=== PATIENT | male | born 1950 | race Caucasian/White ===

== ENCOUNTER → 2018-05-28 08:42 | Outpatient (CLI) | payer MEDICARE, BC, SELFPAY ==
[2018-05-28 10:23] LABS: Alanine Aminotransferase 36 IU/L (21-72); Albumin 4.5 g/dL (3.5-5.0); Alkaline Phosphatase 57 U/L (38-126); Aspartate Aminotransferase 24 IU/L (17-59); Bilirubin Total 1.2 mg/dL (0.2-1.3); Blood Urea Nitrogen 20 mg/dL (9-20); Calcium 9.6 mg/dL (8.4-10.2); Carbon Dioxide 29 mmol/L (22-32); Chloride 103 mmol/L (98-107); Cholesterol 133 mg/dL (140-199); Estimated Glomerular Filt Rate > 60.0 mL/min (>60); Globulin 2.3 g/dL (1.7-4.1); Glucose 122 mg/dL (80-110); HDL Cholesterol 66 mg/dL (40-60); HEMOLYSIS < 15 (0-50); LDL Cholesterol Calculated 52 mg/dL (<100); Sodium 139 mmol/L (137-145); Total Protein 6.8 g/dL (6.3-8.2); Triglycerides 73 mg/dL (35-150)
[2018-05-28 10:57] LABS: Hemoglobin A1C% w Est Avg Glu 5.9 % (4.0-6.0)
== END ==
PROVIDERS: Visit Provider Obstetrics & Gynecology Obstetrics
DX: E11.8 Type 2 diabetes mellitus with unspecified complications (principal); E78.5 Hyperlipidemia, unspecified
CPT/HCPCS: 36415; 80053; 80061; 83036

== ENCOUNTER → 2018-08-07 08:29 | Outpatient (CLI) | payer MEDICARE, BC, SELFPAY ==
[2018-08-07 09:48] LABS: Hemoglobin A1C% w Est Avg Glu 6.3 % (4.0-6.0)
[2018-08-07 09:57] LABS: Alanine Aminotransferase 27 IU/L (21-72); Albumin 4.5 g/dL (3.5-5.0); Albumin Globulin Ratio 1.9 (1.0-2.8); Alkaline Phosphatase 68 U/L (38-126); Aspartate Aminotransferase 22 IU/L (17-59); Bilirubin Total 0.9 mg/dL (0.2-1.3); Blood Urea Nitrogen 21 mg/dL (9-20); Calcium 9.6 mg/dL (8.4-10.2); Carbon Dioxide 28 mmol/L (22-32); Chloride 102 mmol/L (98-107); Cholesterol 152 mg/dL (140-199); Estimated Glomerular Filt Rate > 60.0 mL/min (>60); Globulin 2.4 g/dL (1.7-4.1); Glucose 130 mg/dL (80-110); HDL Cholesterol 62 mg/dL (40-60); HEMOLYSIS < 15 (0-50); LDL Cholesterol Calculated 67 mg/dL (<100); Potassium 4.4 mmol/L (3.4-5.1); Sodium 140 mmol/L (137-145); Total Protein 6.9 g/dL (6.3-8.2); Triglycerides 116 mg/dL (35-150)
== END ==
PROVIDERS: PCP Obstetrics & Gynecology Obstetrics; Visit Provider Obstetrics & Gynecology Obstetrics
DX: E11.8 Type 2 diabetes mellitus with unspecified complications (principal)
CPT/HCPCS: 36415; 80053; 80061; 83036

== ENCOUNTER → 2018-10-21 07:05 | Outpatient (CLI) | payer MEDICARE, BC, SELFPAY ==
[2018-10-21 08:37] LABS: Alanine Aminotransferase 28 IU/L (21-72); Albumin 4.3 g/dL (3.5-5.0); Alkaline Phosphatase 61 U/L (38-126); Aspartate Aminotransferase 20 IU/L (17-59); BUN Creatinine Ratio 37.1 (6-22); Bilirubin Total 0.8 mg/dL (0.2-1.3); Blood Urea Nitrogen 26 mg/dL (9-20); Calcium 9.8 mg/dL (8.4-10.2); Carbon Dioxide 29 mmol/L (22-32); Chloride 105 mmol/L (98-107); Cholesterol 159 mg/dL (140-199); Estimated Glomerular Filt Rate > 60.0 mL/min (>60); Globulin 2.2 g/dL (1.7-4.1); Glucose 133 mg/dL (80-110); HDL Cholesterol 72 mg/dL (40-60); HEMOLYSIS < 15 (0-50); LDL Cholesterol Calculated 63 mg/dL (<100); Potassium 4.7 mmol/L (3.4-5.1); Sodium 143 mmol/L (137-145); Total Protein 6.5 g/dL (6.3-8.2); Triglycerides 120 mg/dL (35-150)
== END ==
PROVIDERS: PCP Obstetrics & Gynecology Obstetrics; Visit Provider Obstetrics & Gynecology Obstetrics
DX: E78.5 Hyperlipidemia, unspecified (principal); E11.8 Type 2 diabetes mellitus with unspecified complications
CPT/HCPCS: 36415; 80053; 80061; 83036

== ENCOUNTER → 2019-02-09 07:25 | Outpatient (CLI) | payer MEDICARE, BC, SELFPAY ==
[2019-02-09 08:35] LABS: Alanine Aminotransferase 30 IU/L (21-72); Albumin 4.3 g/dL (3.5-5.0); Albumin Globulin Ratio 1.7 (1.0-2.8); Alkaline Phosphatase 65 U/L (38-126); Aspartate Aminotransferase 24 IU/L (17-59); Blood Urea Nitrogen 21 mg/dL (9-20); Calcium 9.5 mg/dL (8.4-10.2); Carbon Dioxide 30 mmol/L (22-32); Chloride 103 mmol/L (98-107); Cholesterol 143 mg/dL (140-199); Estimated Glomerular Filt Rate > 60.0 mL/min (>60); Globulin 2.5 g/dL (1.7-4.1); Glucose 133 mg/dL (80-110); HDL Cholesterol 70 mg/dL (40-60); HEMOLYSIS < 15 (0-50); LDL Cholesterol Calculated 47 mg/dL (<100); Potassium 3.9 mmol/L (3.4-5.1); Sodium 138 mmol/L (137-145); Total Protein 6.8 g/dL (6.3-8.2); Triglycerides 132 mg/dL (35-150)
[2019-02-10 15:34] LABS: Hemoglobin A1C% w Est Avg Glu 6.1 % (4.0-6.0)
== END ==
PROVIDERS: PCP Obstetrics & Gynecology Obstetrics; Visit Provider Obstetrics & Gynecology Obstetrics
DX: E11.9 Type 2 diabetes mellitus without complications (principal); E78.5 Hyperlipidemia, unspecified
CPT/HCPCS: 36415; 80053; 80061; 83036

== ENCOUNTER → 2019-05-13 08:06 | Outpatient (CLI) | payer MEDICARE, BC, SELFPAY ==
[2019-05-13 10:05] LABS: Hemoglobin A1C% w Est Avg Glu 6.4 % (4.0-6.0)
[2019-05-13 10:22] LABS: Alanine Aminotransferase 25 IU/L (<50); Albumin 4.1 g/dL (3.5-5.0); Albumin Globulin Ratio 1.8 (1.0-2.8); Alkaline Phosphatase 60 U/L (38-126); Aspartate Aminotransferase 22 IU/L (17-59); Bilirubin Total 0.7 mg/dL (0.2-1.3); Blood Urea Nitrogen 20 mg/dL (9-20); Calcium 10.1 mg/dL (8.4-10.2); Carbon Dioxide 29 mmol/L (22-32); Chloride 103 mmol/L (98-107); Cholesterol 150 mg/dL (140-199); Estimated Glomerular Filt Rate > 60.0 mL/min (>60); Globulin 2.3 g/dL (1.7-4.1); Glucose 131 mg/dL (80-110); HDL Cholesterol 71 mg/dL (40-60); HEMOLYSIS < 15 (0-50); LDL Cholesterol Calculated 53 mg/dL (<100); Potassium 4.4 mmol/L (3.4-5.1); Sodium 139 mmol/L (137-145); Total Protein 6.4 g/dL (6.3-8.2); Triglycerides 130 mg/dL (35-150)
== END ==
PROVIDERS: PCP Obstetrics & Gynecology Obstetrics; Visit Provider Obstetrics & Gynecology Obstetrics
DX: E11.9 Type 2 diabetes mellitus without complications (principal); E78.5 Hyperlipidemia, unspecified
CPT/HCPCS: 36415; 80053; 80061; 83036

== ENCOUNTER → 2019-06-18 10:54 | Outpatient (CLI) | payer MEDICARE, BC, SELFPAY ==
[2019-06-18 11:33] LABS: Influenza A - CEPHEID Flu A NEGATIVE (NEGATIVE); Influenza B - CEPHEID Flu B NEGATIVE (NEGATIVE)
== END ==
PROVIDERS: PCP Obstetrics & Gynecology Obstetrics; Visit Provider Physician Assistant
DX: R50.9 Fever, unspecified (principal)
CPT/HCPCS: 87502

== ENCOUNTER 2019-06-25 10:16 | Emergency (ER) | payer MEDICARE, BC, SELFPAY ==
[2019-06-25 10:20] VITALS: BP 137/80; PULSE 78; RESP 18; TEMP 37.2; O2SAT 98
--- NOTE | 2019-06-25 10:34 | DI.RAD.S_ITS ---
PROCEDURE: XR CHEST 2V INDICATIONS: copd/cough x 9 days w/ fever TECHNIQUE: 2 views of the chest were acquired. COMPARISON: [facility], , CHEST 2 VIEW, 01/30/2017, 12:26. FINDINGS: Surgical changes and devices: None. Lungs and pleura: There are linear opacities redemonstrated in the left base likely representing atelectasis or scarring. No definite acute consolidation. No pleural effusions or pneumothorax. Mediastinum: Mediastinal contours are normal. Heart size is normal. Bones and chest wall: No suspicious bony abnormalities. Soft tissues appear unremarkable. IMPRESSION: 1. No definite consolidation to suggest pneumonia. 2. Probable atelectasis or scarring in the left base. Dictated by: Salvador Burton M.D. on 06/25/2019 at 9:50 Approved by: Salvador Burton M.D. on 06/25/2019 at 9:52
--- NOTE | 2019-06-25 10:44 | ED_ITS ---
HPI - Fever General Chief Complaint: Fever Stated Complaint: fever Time Seen by Provider: 06/25/19 10:18 Source: patient and family Mode of arrival: Ambulatory Limitations: no limitations History of Present Illness HPI Narrative: 68-year-old male former smoker with history of COPD presents with a chief complaint of ongoing nasal congestion, fever as high as 102 and cough productive of yellowish sputum for upwards of 9 days. He was seen and evaluated at the walk-in clinic on and diagnosed with presumptive pneumonia and put on doxycycline of which he has taken 4 doses. He still continues to feel ?lousy?. He denies any chest pain or significant shortness of breath. He denies any recent travel. He states that a deep breath seems to exacerbate his cough MD complaint: fever Onset (ago): day(s) Temperature Source: oral Associated symptoms: chills, myalgias, headache, rhinorrhea and nasal congestion Relieving factors: nothing Exacerbating factors: nothing Treatments prior to arrival fever: antibiotics Related Data Home Medications Medication Instructions Recorded Confirmed budesonide 2 ml INHALATION BID 06/25/19 06/25/19 doxycycline hyclate 100 mg PO BID 06/25/19 06/25/19 finasteride 5 mg PO DAILY 06/25/19 06/25/19 hydrocodone-acetaminophen 1 tab PO QID PRN 06/25/19 06/25/19 Allergies Allergy/AdvReac Type Severity Reaction Status Date / Time rivaroxaban [From XARELTO] Allergy Severe THOUGHT HE Verified 06/18/19 10:32 WAS HAVING A HEART ATTACK Review of Systems Constitutional Constitutional: Reports chills, Denies fatigue, Reports fever(s), Denies frequent falls, Denies lethargy and Denies weakness Eyes Eyes: Denies change in vision, Denies eye discharge, Denies irritation and Denies loss of vision ENT Ears, Nose, Mouth, and Throat: Denies change in voice, Denies dizziness, Reports nasal congestion, Denies neck pain, Denies sore throat and Denies throat swelling Cardiovascular Cardiovascular: Denies chest pain, Denies irregular heart rhythm, Denies lightheadedness, Denies palpitations, Denies dyspnea, Denies dyspnea on exertion and Denies orthopnea Respiratory Respiratory: Reports cough, Reports excessive phlegm production, Denies dyspnea, Denies dyspnea on exertion and Denies wheezing Gastrointestinal Gastrointestinal: Denies abdominal pain, Denies change in bowel habits, Denies diarrhea, Denies nausea and Denies vomiting Genitourinary Genitourinary: Denies hematuria, Denies flank pain, Denies urinary incontinence and Denies urinary urgency Musculoskeletal Musculoskeletal: Denies back pain, Denies muscle weakness, Denies neck pain, Denies numbness and Denies tingling Integumentary/Breasts Skin/Breast: Denies pruritus, Denies erythema, Denies rash and Denies wounds Neurologic Neurologic: Denies behavioral changes, Denies confusion, Denies dizziness, Denies frequent falls, Denies loss of vision, Denies numbness, Denies tingling and Denies weakness Psychiatric Psychiatric: Denies anxiety, Denies behavioral changes, Denies confusion, Denies depression, Denies homicidal ideation and Denies suicidal ideation Endocrine Endocrine: Denies fatigue, Denies flushing and Denies palpitations Hematologic/Lymphatic Hematologic/Lymphatic: Denies easy bruising Allergic/Immunologic Allergic/Immunologic: Denies urticaria, Denies throat swelling and Denies wheezing Patient History Medical History Viral syndrome (Acute) Social History Smoking Status: Never smoker Smoking Status: Never smoker alcohol intake frequency: 0-2 drinks per day Substance Use Type: does not use Exam Narrative Exam Narrative: GENERAL: [68] year old patient appears stated age. Well- nourished, well-developed patient, in mild distress. HEAD: Atraumatic. Normocephalic. EYES: Pupils equal round and reactive. Extraocular motions intact. No scleral icterus. No injection or drainage. ENT: Nose without bleeding, purulent drainage. Throat without erythema, tonsillar hypertrophy or exudate. Airway patent. NECK: Trachea midline. Non tender CARDIOVASCULAR: Regular rate and rhythm without murmurs, gallops, or rubs. RESPIRATORY: Decreased breath sounds bilaterally with prolonged expiratory phase and some suggestion of bronchospastic cough GASTROINTESTINAL: Abdomen soft, non-tender, nondistended. EXTREMITIES: No edema or joint tenderness. BACK: Nontender without deformity or crepitance. No flank tenderness. NEURO: AOx3. SKIN: No rash or erythema of visible areas Initial Vital Signs Initial Vital Signs: Vital Signs Temperature 98.9 F 06/25/19 10:20 Pulse Rate 78 06/25/19 10:20 Respiratory Rate 18 06/25/19 10:20 Blood Pressure 137/80 06/25/19 10:20 Pulse Oximetry 98 06/25/19 10:20 Course Orders Ordered: ED Orders 06/25/19 10:30 Complete Blood Count AUTO DIFF Stat Comprehensive Metabolic Panel Stat Lactate (Lactic Acid) Stat Lipase Stat Partial Thromboplastin Time Stat Procalcitonin Stat Prothrombin Time INR Stat 06/25/19 10:34 Chest [XR chest 2V] Stat EKG-12 Lead Stat 06/25/19 10:55 Blood Culture Stat 06/25/19 11:00 Influenza A & B (PCR) Stat Respiratory Panel (Film Array) Stat Discontinued Medications Albuterol/Ipratropium (Duoneb) 3 ml INH NOW ONE Stop: 06/25/19 11:17 Last Admin: 06/25/19 11:48 Dose: 3 ml Documented by: RENNY Sodium Chloride (Normal Saline 0.9%) 1,000 mls @ 1,000 mls/hr IV BOLUS ONE Stop: 06/25/19 11:32 Last Infusion: 06/25/19 11:58 Dose: 0 mls/hr Documented by: Admin: 06/25/19 10:55 Dose: 1,000 mls/hr Documented by: CHRISTINA Ketorolac Tromethamine (Toradol) 15 mg IV NOW ONE Stop: 06/25/19 10:44 Last Admin: 06/25/19 10:57 Dose: 15 mg Documented by: CHRISTINA Ondansetron HCl (Zofran) 4 mg IV NOW ONE Stop: 06/25/19 10:34 Last Admin: 06/25/19 10:57 Dose: 4 mg Documented by: CHRISTINA Vital Signs Vital signs: Vital Signs - 8 hr 06/25/19 11:07 06/25/19 11:47 06/25/19 11:49 Pulse Rate 75 74 73 Respiratory Rate 14 15 16 Blood Pressure [Left Arm] 123/73 121/71 Pulse Oximetry 97 96 97 06/25/19 13:00 Pulse Rate 68 Respiratory Rate 16 Blood Pressure [Left Arm] 107/66 Pulse Oximetry 93 MDM - Fever Lab Data Result diagrams: 06/25/19 10:30 06/25/19 10:30 Labs: Lab Results 06/25/19 06/25/19 06/25/19 Range/Units 10:30 10:30 10:30 WBC 4.8 (4.5-11.0) X10^3/uL RBC 4.22 L (4.5-5.9) X10^6/uL Hgb 13.8 (13.5-17.5) g/dL Hct 39.3 L (41-53) % MCV 93.1 (80-100) fL MCH 32.7 (26-34) PG MCHC 35.1 (30-36) % RDW 12.6 (11.6-14.8) % Plt Count 204 (150-400) X10^3/uL Neut % (Auto) 73.1 (50-75) % Lymph % (Auto) 19.1 L (25-40) % Forest % (Auto) 7.4 (3-14) % Eos % (Auto) 0.1 L (2-4) % Baso % (Auto) 0.3 (0-2) % Neut # (Auto) 3500 (5366-0007) /uL Lymph # (Auto) 900 L (5202-6050) /uL Forest # (Auto) 400 (0-900) /uL Eos # (Auto) 0 (0-450) /uL Baso # (Auto) 0 (0-100) /uL PT 12.1 (10.1-12.7) SECONDS INR 1.0 (0.9-1.3) APTT 27 (26.4-36.2) SECONDS Sodium (137-145) mmol/L Potassium (3.4-5.1) mmol/L Chloride (98-107) mmol/L Carbon Dioxide (22-32) mmol/L BUN (9-20) mg/dL Creatinine (0.66-1.25) mg/dL Estimated GFR (>60) mL/min BUN/Creatinine Ratio (6-22) Glucose (80-110) mg/dL Lactate (0.7-2.1) mmol/L Calcium (8.4-10.2) mg/dL Total Bilirubin (0.2-1.3) mg/dL AST (17-59) IU/L ALT (<50) IU/L Alkaline Phosphatase (38-126) U/L Total Protein (6.3-8.2) g/dL Albumin (3.5-5.0) g/dL Globulin (1.7-4.1) g/dL Albumin/Globulin Ratio (1.0-2.8) Lipase (23-300) U/L Procalcitonin < 0.05 (<0.5) ng/mL Chlamy pneumoniae PCR (Not Detect) Adenovirus (PCR) (Not Detect) B.parapertussis DNA PCR (Not Detect) Coronavirus OC43 (PCR) (Not Detect) Coronavirus HKU1 (PCR) (Not Detect) Coronavirus 229E (PCR) (Not Detect) Coronavirus NL63 (PCR) (Not Detect) Human Metapneumovir PCR (Not Detect) Influenza A (RT-PCR) (NEGATIVE) Influenza Type A (PCR) (Not Detect) Influenza B (RT-PCR) (NEGATIVE) Influenza Type B (PCR) (Not Detect) M. pneumoniae (PCR) (Not Detect) Parainfluenza 1 (PCR) (Not Detect) Parainfluenza 2 (PCR) (Not Detect) Parainfluenza 3 (PCR) (Not Detect) Parainfluenza 4 (PCR) (Not Detect) RSV (PCR) (Not Detect) Entero/Rhino (PCR) (Not Detect) 06/25/19 06/25/19 06/25/19 Range/Units 10:30 10:30 11:00 WBC (4.5-11.0) X10^3/uL RBC (4.5-5.9) X10^6/uL Hgb (13.5-17.5) g/dL Hct (41-53) % MCV (80-100) fL MCH (26-34) PG MCHC (30-36) % RDW (11.6-14.8) % Plt Count (150-400) X10^3/uL Neut % (Auto) (50-75) % Lymph % (Auto) (25-40) % Forest % (Auto) (3-14) % Eos % (Auto) (2-4) % Baso % (Auto) (0-2) % Neut # (Auto) (3845-6293) /uL Lymph # (Auto) (1045-7842) /uL Forest # (Auto) (0-900) /uL Eos # (Auto) (0-450) /uL Baso # (Auto) (0-100) /uL PT (10.1-12.7) SECONDS INR (0.9-1.3) APTT (26.4-36.2) SECONDS Sodium 136 L (137-145) mmol/L Potassium 3.7 (3.4-5.1) mmol/L Chloride 100 (98-107) mmol/L Carbon Dioxide 24 (22-32) mmol/L BUN 17 (9-20) mg/dL Creatinine 0.70 (0.66-1.25) mg/dL Estimated GFR > 60.0 (>60) mL/min BUN/Creatinine Ratio 24.3 H (6-22) Glucose 249 H (80-110) mg/dL Lactate 1.9 (0.7-2.1) mmol/L Calcium 8.8 (8.4-10.2) mg/dL Total Bilirubin 0.5 (0.2-1.3) mg/dL AST 30 (17-59) IU/L ALT 30 (<50) IU/L Alkaline Phosphatase 69 (38-126) U/L Total Protein 6.7 (6.3-8.2) g/dL Albumin 4.2 (3.5-5.0) g/dL Globulin 2.5 (1.7-4.1) g/dL Albumin/Globulin Ratio 1.7 (1.0-2.8) Lipase 111 (23-300) U/L Procalcitonin (<0.5) ng/mL Chlamy pneumoniae PCR (Not Detect) Adenovirus (PCR) (Not Detect) B.parapertussis DNA PCR (Not Detect) Coronavirus OC43 (PCR) (Not Detect) Coronavirus HKU1 (PCR) (Not Detect) Coronavirus 229E (PCR) (Not Detect) Coronavirus NL63 (PCR) (Not Detect) Human Metapneumovir PCR (Not Detect) Influenza A (RT-PCR) Flu a negative (NEGATIVE) Influenza Type A (PCR) (Not Detect) Influenza B (RT-PCR) Flu b negative (NEGATIVE) Influenza Type B (PCR) (Not Detect) M. pneumoniae (PCR) (Not Detect) Parainfluenza 1 (PCR) (Not Detect) Parainfluenza 2 (PCR) (Not Detect) Parainfluenza 3 (PCR) (Not Detect) Parainfluenza 4 (PCR) (Not Detect) RSV (PCR) (Not Detect) Entero/Rhino (PCR) (Not Detect) 06/25/19 Range/Units 11:00 WBC (4.5-11.0) X10^3/uL RBC (4.5-5.9) X10^6/uL Hgb (13.5-17.5) g/dL Hct (41-53) % MCV (80-100) fL MCH (26-34) PG MCHC (30-36) % RDW (11.6-14.8) % Plt Count (150-400) X10^3/uL Neut % (Auto) (50-75) % Lymph % (Auto) (25-40) % Forest % (Auto) (3-14) % Eos % (Auto) (2-4) % Baso % (Auto) (0-2) % Neut # (Auto) (7903-4068) /uL Lymph # (Auto) (8491-6206) /uL Forest # (Auto) (0-900) /uL Eos # (Auto) (0-450) /uL Baso # (Auto) (0-100) /uL PT (10.1-12.7) SECONDS INR (0.9-1.3) APTT (26.4-36.2) SECONDS Sodium (137-145) mmol/L Potassium (3.4-5.1) mmol/L Chloride (98-107) mmol/L Carbon Dioxide (22-32) mmol/L BUN (9-20) mg/dL Creatinine (0.66-1.25) mg/dL Estimated GFR (>60) mL/min BUN/Creatinine Ratio (6-22) Glucose (80-110) mg/dL Lactate (0.7-2.1) mmol/L Calcium (8.4-10.2) mg/dL Total Bilirubin (0.2-1.3) mg/dL AST (17-59) IU/L ALT (<50) IU/L Alkaline Phosphatase (38-126) U/L Total Protein (6.3-8.2) g/dL Albumin (3.5-5.0) g/dL Globulin (1.7-4.1) g/dL Albumin/Globulin Ratio (1.0-2.8) Lipase (23-300) U/L Procalcitonin (<0.5) ng/mL Chlamy pneumoniae PCR Not detected (Not Detect) Adenovirus (PCR) Not detected (Not Detect) B.parapertussis DNA PCR Not detected (Not Detect) Coronavirus OC43 (PCR) Not detected (Not Detect) Coronavirus HKU1 (PCR) Not detected (Not Detect) Coronavirus 229E (PCR) Not detected (Not Detect) Coronavirus NL63 (PCR) Not detected (Not Detect) Human Metapneumovir PCR Not detected (Not Detect) Influenza A (RT-PCR) (NEGATIVE) Influenza Type A (PCR) Not detected (Not Detect) Influenza B (RT-PCR) (NEGATIVE) Influenza Type B (PCR) Not detected (Not Detect) M. pneumoniae (PCR) Not detected (Not Detect) Parainfluenza 1 (PCR) Not detected (Not Detect) Parainfluenza 2 (PCR) Not detected (Not Detect) Parainfluenza 3 (PCR) Not detected (Not Detect) Parainfluenza 4 (PCR) Not detected (Not Detect) RSV (PCR) Not detected (Not Detect) Entero/Rhino (PCR) Not detected (Not Detect) Urine Dip Bedside Urine Glucose Negative Bedside Urine Bilirubin - Negative Bedside Urine Ketone - Negative Urine Specific [place] 1.015 Bedside Urine Occult Blood - Negative Bedside Urine pH 5.5 Bedside Urine Protein +/- 15 Bedside Urine Urobilinogen - Negative Bedside Urine Nitrite - Negative Bedside Urine Leukocytes - Negative Esterase Discharge Plan Departure Patient Disposition: Home Clinical Impression: Atypical pneumonia Discharge Date/Time: 06/25/19 13:52 Instructions: DI for Atypical Pneumonia Activity Restrictions/Additional Instructions: *You have been diagnosed with [fever with productive cough likely due to an atypical pneumonia. I did discuss your case with the [facility] and you do not meet the criteria for evaluation of coronavirus] *What to do: *Take medications as directed *Follow up with your primary care provider in 2-3 days, call for an appointment. Let them know you were seen in the Emergency Department and that we ask that you be seen in follow up *Return to ER if you should have any new, worsening or concerning symptoms, such as [ ] Prescriptions: No Action doxycycline hyclate 100 mg capsule 100 mg PO BID RF: 0 hydrocodone-acetaminophen 5-325 mg tablet 1 tab PO QID PRN (Reason: Pain (Scale Score 7-10)) RF: 0 budesonide 0.5 mg/2 mL suspension for nebulization 2 ml inhalation BID RF: 0 finasteride 5 mg tablet 5 mg PO DAILY RF: 0 Referrals: Shreya Mejia MD [Primary Care Provider] -
[2019-06-25 10:45] LABS: Add Manual Diff / Slide Review NO; Basophils Absolute Auto 0 /uL (0-100); Basophils Percent Auto 0.3 % (0-2); Eosinophils Absolute Auto 0 /uL (0-450); Eosinophils Percent Auto 0.1 % (2-4); Hematocrit 39.3 % (41-53); Hemoglobin 13.8 g/dL (13.5-17.5); Lymphocytes Absolute Auto 900 /uL (1100-4500); Lymphocytes Percent Auto 19.1 % (25-40); Mean Corpuscular HGB Conc 35.1 % (30-36); Mean Corpuscular Hemoglobin 32.7 PG (26-34); Mean Corpuscular Volume 93.1 fL (80-100); Monocytes Absolute Auto 400 /uL (0-900); Monocytes Percent Auto 7.4 % (3-14); Neutrophils Absolute Auto 3500 /uL (1500-7000); Neutrophils Percent Auto 73.1 % (50-75); Platelet Count 204 X10^3/uL (150-400); Red Blood Cell Count 4.22 X10^6/uL (4.5-5.9); Red Cell Distribution Width 12.6 % (11.6-14.8); White Blood Cell Count 4.8 X10^3/uL (4.5-11.0)
[2019-06-25] MEDS: SODIUM CHLORIDE 0.9% 1,000 ML 1000 ML IV (10:55)
[2019-06-25] MEDS: KETOROLAC 60 MG/2 ML VIAL 15 MG IV (10:57)
[2019-06-25] MEDS: ONDANSETRON 4 MG/2 ML INJ IV (10:57)
[2019-06-25 11:07] VITALS: BP 123/73; PULSE 75; RESP 14; O2SAT 97
[2019-06-25 11:10] LABS: Prothrombin Time 12.1 SECONDS (10.1-12.7)
[2019-06-25 11:13] LABS: Lactate (Lactic Acid) 1.9 mmol/L (0.7-2.1); PTT Partial Thromboplastin Tim 27 SECONDS (26.4-36.2)
[2019-06-25 11:14] LABS: Alanine Aminotransferase 30 IU/L (<50); Albumin 4.2 g/dL (3.5-5.0); Albumin Globulin Ratio 1.7 (1.0-2.8); Alkaline Phosphatase 69 U/L (38-126); Aspartate Aminotransferase 30 IU/L (17-59); BUN Creatinine Ratio 24.3 (6-22); Bilirubin Total 0.5 mg/dL (0.2-1.3); Blood Urea Nitrogen 17 mg/dL (9-20); Calcium 8.8 mg/dL (8.4-10.2); Carbon Dioxide 24 mmol/L (22-32); Chloride 100 mmol/L (98-107); Estimated Glomerular Filt Rate > 60.0 mL/min (>60); Globulin 2.5 g/dL (1.7-4.1); Glucose 249 mg/dL (80-110); HEMOLYSIS < 15 (0-50); Lipase 111 U/L (23-300); Potassium 3.7 mmol/L (3.4-5.1); Sodium 136 mmol/L (137-145); Total Protein 6.7 g/dL (6.3-8.2)
[2019-06-25 11:47] VITALS: BP 121/71; PULSE 74; RESP 15; O2SAT 96
[2019-06-25] MEDS: ALBUTEROL/IPRATROPIUM 3 ML AMPUL INH (11:48)
[2019-06-25 11:49] VITALS: PULSE 73; RESP 16; O2SAT 97
[2019-06-25 12:03] LABS: Procalcitonin < 0.05 ng/mL (<0.5)
[2019-06-25 12:31] LABS: Influenza A - CEPHEID Flu A NEGATIVE (NEGATIVE); Influenza B - CEPHEID Flu B NEGATIVE (NEGATIVE)
[2019-06-25 13:00] VITALS: BP 107/66; PULSE 68; RESP 16; O2SAT 93
[2019-06-25 13:17] LABS: Adenovirus Not Detected (Not Detect); Bordetella pertussis Not Detected (Not Detect); Chlamydophila pneumoniae Not Detected (Not Detect); Coronavirus 229E Not Detected (Not Detect); Coronavirus HKU1 Not Detected (Not Detect); Coronavirus NL 63 Not Detected (Not Detect); Coronavirus OC43 Not Detected (Not Detect); Human Metapneumovirus Not Detected (Not Detect); Human Rhinovirus/Enterovirus Not Detected (Not Detect); Influenza A Not Detected (Not Detect); Influenza B Not Detected (Not Detect); Mycoplasma pneumoniae Not Detected (Not Detect); Parainfluenza Virus 1 Not Detected (Not Detect); Parainfluenza Virus 2 Not Detected (Not Detect); Parainfluenza Virus 3 Not Detected (Not Detect); Parainfluenza Virus 4 Not Detected (Not Detect); Respiratory Syncytial Virus Not Detected (Not Detect)
== END 2019-06-25 13:52 | disposition home or self-care (01) ==
PROVIDERS: Emergency Provider Emergency Medicine; PCP Obstetrics & Gynecology Obstetrics
DX: J18.9 Pneumonia, unspecified organism (principal); R50.9 Fever, unspecified
CPT/HCPCS: 36415; 71046; 80053; 81003; 83605; 83690; 84145; 85025; 85610; 85730; 87040; 87502; 87633; 93005; 94640; 96361; 96374; 96375; 99284; J1885; J2405

== ENCOUNTER → 2019-08-02 07:56 | Outpatient (CLI) | payer MEDICARE, BC, SELFPAY ==
[2019-08-02 09:42] LABS: Hemoglobin A1C% w Est Avg Glu 6.6 % (4.0-6.0)
[2019-08-02 09:48] LABS: Alanine Aminotransferase 26 IU/L (<50); Albumin 4.4 g/dL (3.5-5.0); Albumin Globulin Ratio 1.6 (1.0-2.8); Alkaline Phosphatase 59 U/L (38-126); Aspartate Aminotransferase 26 IU/L (17-59); BUN Creatinine Ratio 28.2 (6-22); Bilirubin Total 0.9 mg/dL (0.2-1.3); Blood Urea Nitrogen 20 mg/dL (9-20); Calcium 9.9 mg/dL (8.4-10.2); Carbon Dioxide 28 mmol/L (22-32); Chloride 103 mmol/L (98-107); Cholesterol 153 mg/dL (140-199); Estimated Glomerular Filt Rate > 60.0 mL/min (>60); Globulin 2.8 g/dL (1.7-4.1); Glucose 133 mg/dL (80-110); HDL Cholesterol 59 mg/dL (40-60); HEMOLYSIS < 15 (0-50); LDL Cholesterol Calculated 73 mg/dL (<100); Potassium 4.4 mmol/L (3.4-5.1); Sodium 139 mmol/L (137-145); Total Protein 7.2 g/dL (6.3-8.2); Triglycerides 104 mg/dL (35-150)
== END ==
PROVIDERS: PCP Obstetrics & Gynecology Obstetrics; Referring Provider Obstetrics & Gynecology Obstetrics; Visit Provider Obstetrics & Gynecology Obstetrics
DX: E11.9 Type 2 diabetes mellitus without complications (principal); E78.5 Hyperlipidemia, unspecified
CPT/HCPCS: 36415; 80053; 80061; 83036

== ENCOUNTER → 2019-11-07 07:01 | Outpatient (CLI) | payer MEDICARE, BC, SELFPAY ==
[2019-11-07 07:58] LABS: Alanine Aminotransferase 23 IU/L (<50); Albumin 4.4 g/dL (3.5-5.0); Albumin Globulin Ratio 2.1 (1.0-2.8); Alkaline Phosphatase 51 U/L (38-126); Aspartate Aminotransferase 23 IU/L (17-59); BUN Creatinine Ratio 35.1 (6-22); Bilirubin Total 0.7 mg/dL (0.2-1.3); Blood Urea Nitrogen 26 mg/dL (9-20); Calcium 10.3 mg/dL (8.4-10.2); Carbon Dioxide 29 mmol/L (22-32); Chloride 104 mmol/L (98-107); Cholesterol 149 mg/dL (140-199); Estimated Glomerular Filt Rate > 60.0 mL/min (>60); Globulin 2.1 g/dL (1.7-4.1); Glucose 118 mg/dL (80-110); HDL Cholesterol 75 mg/dL (40-60); HEMOLYSIS < 15 (0-50); LDL Cholesterol Calculated 55 mg/dL (<100); Potassium 4.6 mmol/L (3.4-5.1); Sodium 138 mmol/L (137-145); Total Protein 6.5 g/dL (6.3-8.2); Triglycerides 97 mg/dL (35-150)
[2019-11-07 08:01] LABS: Hemoglobin A1C% w Est Avg Glu 6.4 % (4.0-6.0)
== END ==
PROVIDERS: PCP Obstetrics & Gynecology Obstetrics; Referring Provider Obstetrics & Gynecology Obstetrics; Visit Provider Obstetrics & Gynecology Obstetrics
DX: E11.9 Type 2 diabetes mellitus without complications (principal); E78.5 Hyperlipidemia, unspecified
CPT/HCPCS: 36415; 80053; 80061; 83036

== ENCOUNTER → 2020-05-02 13:58 | Outpatient (CLI) | payer MEDICARE, BC, SELFPAY ==
[2020-05-02 14:55] LABS: COVID19 -Nasal RAPID Negative (Negative)
== END ==
PROVIDERS: PCP Obstetrics & Gynecology Obstetrics; Visit Provider Physician Assistant
DX: Z01.812 Encounter for preprocedural laboratory examination (principal); Z20.822 Contact with and (suspected) exposure to COVID-19
CPT/HCPCS: 87635; C9803

== ENCOUNTER → 2020-05-07 07:24 | Outpatient (CLI) | payer MEDICARE, BC, SELFPAY ==
[2020-05-07 08:17] LABS: Hemoglobin A1C% w Est Avg Glu 6.6 % (4.0-6.0)
[2020-05-07 08:41] LABS: Alanine Aminotransferase 29 IU/L (<50); Albumin 4.4 g/dL (3.5-5.0); Albumin Globulin Ratio 1.9 (1.0-2.8); Alkaline Phosphatase 66 U/L (38-126); Aspartate Aminotransferase 31 IU/L (17-59); BUN Creatinine Ratio 33.8 (6-22); Bilirubin Total 0.8 mg/dL (0.2-1.3); Blood Urea Nitrogen 24 mg/dL (9-20); Calcium 9.7 mg/dL (8.4-10.2); Carbon Dioxide 31 mmol/L (22-32); Chloride 105 mmol/L (98-107); Estimated Glomerular Filt Rate > 60.0 mL/min (>60); Globulin 2.3 g/dL (1.7-4.1); Glucose 140 mg/dL (80-110); HEMOLYSIS 17 (0-50); Potassium 4.3 mmol/L (3.4-5.1); Sodium 140 mmol/L (137-145); Total Protein 6.7 g/dL (6.3-8.2)
[2020-05-08 03:15] LABS: Cholesterol HDL Ratio 2.3 ratio (0.0-5.0); Cholesterol,Total 159 mg/dL (100-199); HDL Cholesterol 69 mg/dL (>39); LDL Cholesterol Cal 66 mg/dL (0-99); Triglycerides 138 mg/dL (0-149); VLDL Cholesterol Cal 24 mg/dL (5-40)
== END ==
PROVIDERS: PCP Obstetrics & Gynecology Obstetrics; Referring Provider Obstetrics & Gynecology Obstetrics; Visit Provider Obstetrics & Gynecology Obstetrics
DX: E11.9 Type 2 diabetes mellitus without complications (principal); E78.5 Hyperlipidemia, unspecified
CPT/HCPCS: 36415; 80053; 80061; 83036

== ENCOUNTER → 2020-05-22 10:02 | Outpatient (CLI) | payer MEDICARE, BC, SELFPAY ==
[2020-05-22] MEDS: COVID-19 VACC #1, MRNA(MOD) 100 MCG/0.5 ML VIAL IM (10:11)
== END ==
PROVIDERS: PCP Obstetrics & Gynecology Obstetrics; Visit Provider Internal Medicine
DX: Z23 Encounter for immunization (principal)
CPT/HCPCS: 0011A; 91301

== ENCOUNTER → 2020-06-20 09:59 | Outpatient (CLI) | payer MEDICARE, BC, SELFPAY ==
[2020-06-20] MEDS: COVID-19 VACC #2, MRNA(MOD) 100 MCG/0.5 ML VIAL IM (10:16)
== END ==
PROVIDERS: PCP Obstetrics & Gynecology Obstetrics; Visit Provider Internal Medicine
DX: Z23 Encounter for immunization (principal)
CPT/HCPCS: 0012A; 91301

== ENCOUNTER → 2020-07-30 10:48 | Outpatient (CLI) | payer MEDICARE, BC, SELFPAY ==
[2020-07-30 12:57] LABS: COVID19 -Nasal RAPID Negative (Negative)
== END ==
PROVIDERS: PCP Obstetrics & Gynecology Obstetrics; Visit Provider Physician Assistant
DX: Z01.812 Encounter for preprocedural laboratory examination (principal); Z20.822 Contact with and (suspected) exposure to COVID-19
CPT/HCPCS: 87635; C9803

== ENCOUNTER 2020-08-01 07:30 | Day surgery (SDC) | payer MEDICARE, BC, SELFPAY ==
[2020-08-01] VITALS (9 sets, daily range): BP systolic 100–139; BP diastolic 67–82; PULSE 63–78; RESP 12–16; TEMP 36.6–36.9; O2SAT 90–98; BMI 28.5
--- NOTE | 2020-08-01 | PATH_ITS ---
[facility] Accession Number: [id number] . 01 Material submitted: . PART A: colon - RIGHT COLON BIOPSY PART B: colon - TRANSVERSE COLON BIOPSY PART C: colon - LEFT COLON BIOPSY . 01 Clinical history: . SDC . 02 Diagnosis: A, C. Right Colon, Left Colon, Biopsies: Colonic mucosa with no significant diagnostic abnormality. Negative for active inflammation, granulomas, dysplasia, and malignancy. . B. Transverse Colon, Biopsy: Colonic mucosa with focal mild neutrophilic cryptitis. Negative for granulomas, dysplasia and malignancy. MRV 08/06/2020 1449 Local . 02 Comment: The morphologic appearance could be compatible with the provided clinical history of ulcerative colitis if infection and medication-related mucosal injury are excluded. . 02 Electronically signed: . Jonna Christianson MD, Pathologist NPI- [id number] . 01 Gross description: . Part A: RIGHT COLON BIOPSY: Received in formalin are multiple fragment(s) of peters, soft tissue measuring 0.1 x 0.1 x 0.1 cm to 0.3 x 0.2 x 0.2 cm submitted entirely in 1 cassette(s) Part B: TRANSVERSE COLON BIOPSY: Received in formalin are multiple fragment(s) of peters, soft tissue measuring 0.1 x 0.1 x 0.1 cm to 0.2 x 0.2 x 0.2 cm submitted entirely in 1 cassette(s) Part C: LEFT COLON BIOPSY: Received in formalin are multiple fragment(s) of peters, soft tissue measuring 0.1 x 0.1 x 0.1 cm to 0.2 x 0.2 x 0.2 cm submitted entirely in 1 cassette(s) /VELASQUEZ 08/02/2020 1839 Local . 02 Pathologist provided ICD-10: K51.00 . 02 CPT . 474707, 607497, 204043 Performed at: 01 [facility] [address] [place] [address], [place], [place] [id number] MD Salvador Peterson MD Phone: [phone] Performed at: 02 [facility] [address] [place], [place] [id number] MD Jonna Christianson MD Phone: [phone]
[2020-08-01] MEDS: SODIUM CHLORIDE 0.9% 1,000 ML 100 ML IV (08:03)
--- NOTE | 2020-08-01 08:16 | PM.HP.1 ---
History of Present Illness History of Present Illness Date Patient Seen: 08/01/20 Chief complaint: SDC Narrative: Screening colonoscopy for ulcerative colitis Patient History Medical History (Updated 07/10/19 @ 00:01 by ) Viral syndrome Family & Social History Social History: household members spouse Tobacco & Substance use: Smoking Status Former smoker alcohol intake current alcohol intake frequency 0-2 drinks per day Substance Use Type opiates,prescription drug Meds Home Medications and Allergies Home Medications Medication Instructions Recorded Confirmed Type budesonide 2 ml INHALATION BID PRN 06/25/19 08/01/20 History finasteride 5 mg PO DAILY 06/25/19 08/01/20 History hydrocodone-acetaminophen 1 tab PO QID PRN 06/25/19 08/01/20 History ciclesonide [Alvesco] 1 puff INHALATION DAILY 08/01/20 08/01/20 History mesalamine [Delzicol] 400 mg PO BID 08/01/20 08/01/20 History metformin 500 mg PO DAILY 08/01/20 08/01/20 History montelukast 10 mg PO DAILY 08/01/20 08/01/20 History rosuvastatin 10 mg PO DAILY 08/01/20 08/01/20 History tamsulosin 0.4 mg PO DAILY 08/01/20 08/01/20 History Allergies Allergy/AdvReac Type Severity Reaction Status Date / Time rivaroxaban [From XARELTO] Allergy Severe THOUGHT HE Verified 08/01/20 07:52 WAS HAVING A HEART ATTACK Exam Vital Signs (past 8 hours): - 08/01/20 07:52 Temperature 98.3 F Pulse Rate 78 Respiratory Rate 12 Blood Pressure 139/82 Pulse Oximetry 98 Oxygen Delivery Method Room Air Narrative Exam Narrative: Oropharynx free of lesions Chest clear to auscultation percussion Cardiac exam reveals no S3 or murmur Assessment & Plan Assessment & Plan narrative: History of ulcerative colitis need for colonoscopy with multiple biopsies. Risks, benefits, alternatives have been explained.
--- NOTE | 2020-08-01 08:18 | PM.OP.ENDO ---
Operative Date/Time/Diagnoses Date of procedure: 08/01/20 Pre-op diagnosis: See indication and findings Procedure & Clinicians Study performed: Colonoscopy Same procedure as scheduled: Yes Indications: Ulcerative colitis for surveillance biopsies Surgeon: Brdiget Higuera Procedure Notes Procedure in detail: After informed consent was obtained the patient was placed in left lateral decubitus position. The video colonoscope was introduced the rectum slowly advanced to cecum. On slow withdrawal mucosa was carefully examined. The scope was removed. The patient of procedure well. Blood loss none Complications none Sedation Total sedation time 20 minutes Versed 6 mg, Fentanyl 100mcg IV titration Findings 1. Very mild colitis with a few aphthae from 40-50cm, 2. Scattered mild left sided diverticulosis. 3. Two biopsies taken every 10 cm and divided into right, transverse, and left colon. Biopsies will be reviewed with the patient. He will need follow-up colonoscopy routinely in 2 years at a maximum.
[2020-08-01] MEDS: fentaNYL 250 MCG/5 ML INJ IV (08:42)
[2020-08-01] MEDS: MIDAZOLAM 5 MG/5 ML VIAL IV (08:42)
== END 2020-08-01 09:47 | disposition home or self-care (01) ==
PROVIDERS: PCP Obstetrics & Gynecology Obstetrics; Referring Provider Obstetrics & Gynecology Obstetrics; Visit Provider Internal Medicine Gastroenterology
PROC: 0DJD8ZZ Inspection of Lower Intestinal Tract, Via Natural or Artificial Opening Endoscopic (ICD-10-PCS; CPT 45378; principal; 2020-08-01 08:30)
DX: K62.89 Other specified diseases of anus and rectum (principal); E11.9 Type 2 diabetes mellitus without complications; E78.5 Hyperlipidemia, unspecified; J44.9 Chronic obstructive pulmonary disease, unspecified; K57.30 Diverticulosis of large intestine without perforation or abscess without bleeding
CPT/HCPCS: 45380; J2250; J3010

== ENCOUNTER → 2020-08-03 07:26 | Outpatient (CLI) | payer MEDICARE, BC, SELFPAY ==
[2020-08-03 08:16] LABS: Hemoglobin A1C% w Est Avg Glu 6.5 % (4.0-6.0)
[2020-08-03 08:25] LABS: Alanine Aminotransferase 27 IU/L (<50); Albumin 4.4 g/dL (3.5-5.0); Albumin Globulin Ratio 1.9 (1.0-2.8); Alkaline Phosphatase 71 U/L (38-126); Aspartate Aminotransferase 26 IU/L (17-59); Bilirubin Total 0.7 mg/dL (0.2-1.3); Blood Urea Nitrogen 22 mg/dL (9-20); Calcium 10.3 mg/dL (8.4-10.2); Carbon Dioxide 26 mmol/L (22-32); Chloride 104 mmol/L (98-107); Cholesterol 162 mg/dL (140-199); Estimated Glomerular Filt Rate > 60.0 mL/min (>60); Globulin 2.3 g/dL (1.7-4.1); Glucose 131 mg/dL (80-110); HDL Cholesterol 80 mg/dL (40-60); HEMOLYSIS < 15 (0-50); LDL Cholesterol Calculated 53 mg/dL (<100); Potassium 4.3 mmol/L (3.4-5.1); Sodium 137 mmol/L (137-145); Total Protein 6.7 g/dL (6.3-8.2); Triglycerides 144 mg/dL (35-150)
== END ==
PROVIDERS: PCP Obstetrics & Gynecology Obstetrics; Referring Provider Obstetrics & Gynecology Obstetrics; Visit Provider Obstetrics & Gynecology Obstetrics
DX: E11.9 Type 2 diabetes mellitus without complications (principal); E78.5 Hyperlipidemia, unspecified
CPT/HCPCS: 36415; 80053; 80061; 83036

== ENCOUNTER → 2020-11-01 07:01 | Outpatient (CLI) | payer MEDICARE, BC, SELFPAY ==
[2020-11-01 08:59] LABS: Hemoglobin A1C% w Est Avg Glu 6.6 % (4.0-6.0)
[2020-11-01 09:12] LABS: Alanine Aminotransferase 23 IU/L (<50); Albumin 4.2 g/dL (3.5-5.0); Albumin Globulin Ratio 1.8 (1.0-2.8); Alkaline Phosphatase 59 U/L (38-126); Aspartate Aminotransferase 23 IU/L (17-59); BUN Creatinine Ratio 29.4 (6-22); Bilirubin Total 0.8 mg/dL (0.2-1.3); Blood Urea Nitrogen 20 mg/dL (9-20); Calcium 9.6 mg/dL (8.4-10.2); Carbon Dioxide 28 mmol/L (22-32); Chloride 105 mmol/L (98-107); Cholesterol 158 mg/dL (140-199); Estimated Glomerular Filt Rate > 60.0 mL/min (>60); Globulin 2.3 g/dL (1.7-4.1); Glucose 134 mg/dL (80-110); HDL Cholesterol 71 mg/dL (40-60); HEMOLYSIS < 15 (0-50); LDL Cholesterol Calculated 68 mg/dL (<100); Potassium 3.9 mmol/L (3.4-5.1); Sodium 139 mmol/L (137-145); Total Protein 6.5 g/dL (6.3-8.2); Triglycerides 97 mg/dL (35-150)
== END ==
PROVIDERS: PCP Obstetrics & Gynecology Obstetrics; Referring Provider Obstetrics & Gynecology Obstetrics; Visit Provider Obstetrics & Gynecology Obstetrics
DX: E11.9 Type 2 diabetes mellitus without complications (principal); E78.5 Hyperlipidemia, unspecified
CPT/HCPCS: 36415; 80053; 80061; 83036

== ENCOUNTER → 2021-01-30 07:22 | Outpatient (CLI) | payer MEDICARE, BC, SELFPAY ==
[2021-01-30 08:16] LABS: Hemoglobin A1C% w Est Avg Glu 6.4 % (4.0-6.0)
[2021-01-30 08:17] LABS: Alanine Aminotransferase 22 IU/L (<50); Albumin 4.2 g/dL (3.5-5.0); Albumin Globulin Ratio 1.8 (1.0-2.8); Alkaline Phosphatase 66 U/L (38-126); Aspartate Aminotransferase 22 IU/L (17-59); BUN Creatinine Ratio 29.2 (6-22); Bilirubin Total 0.7 mg/dL (0.2-1.3); Blood Urea Nitrogen 19 mg/dL (9-20); Calcium 9.1 mg/dL (8.4-10.2); Carbon Dioxide 30 mmol/L (22-32); Chloride 102 mmol/L (98-107); Cholesterol 159 mg/dL (140-199); Estimated Glomerular Filt Rate > 60.0 mL/min (>60); Globulin 2.4 g/dL (1.7-4.1); Glucose 140 mg/dL (80-110); HDL Cholesterol 67 mg/dL (40-60); HEMOLYSIS 15 (0-50); LDL Cholesterol Calculated 55 mg/dL (<100); Potassium 4.1 mmol/L (3.4-5.1); Sodium 138 mmol/L (137-145); Total Protein 6.6 g/dL (6.3-8.2); Triglycerides 183 mg/dL (35-150)
== END ==
PROVIDERS: PCP Obstetrics & Gynecology Obstetrics; Referring Provider Obstetrics & Gynecology Obstetrics; Visit Provider Obstetrics & Gynecology Obstetrics
DX: E11.9 Type 2 diabetes mellitus without complications (principal); E78.5 Hyperlipidemia, unspecified
CPT/HCPCS: 36415; 80053; 80061; 83036

== ENCOUNTER → 2021-03-01 12:42 | Outpatient (CLI) | payer MEDICARE, BC, SELFPAY ==
--- NOTE | 2021-03-01 | DI.US.S_ITS ---
PROCEDURE: US ABD AORTA ANEURYSM SCREEN INDICATIONS: SCREENING TECHNIQUE: Real time scanning was performed of the aorta and iliac arteries, with image documentation. COMPARISON: None. FINDINGS: Aorta: The proximal aorta is not well seen. Mid-aorta measures 2.1 cm. Distal aortic diameter is 2 cm. Iliac arteries: Right common iliac artery measures 1.5 cm. Left common iliac artery measures 1.2 cm. This study is limited by body habitus and bowel gas. IMPRESSION: Negative for aneurysm. Dictated by: Nasim Cervantes M.D. on 03/01/2021 at 12:49 Approved by: Nasim Cervantes M.D. on 03/01/2021 at 12:49
== END ==
PROVIDERS: PCP Obstetrics & Gynecology Obstetrics; Referring Provider Obstetrics & Gynecology Obstetrics; Visit Provider Obstetrics & Gynecology Obstetrics
DX: Z13.6 Encounter for screening for cardiovascular disorders (principal); Z87.891 Personal history of nicotine dependence
CPT/HCPCS: 76706

== ENCOUNTER → 2021-04-30 07:24 | Outpatient (CLI) | payer MEDICARE, BC, SELFPAY ==
[2021-04-30 08:47] LABS: Hemoglobin A1C% w Est Avg Glu 7.2 % (4.0-6.0)
[2021-04-30 09:05] LABS: Alanine Aminotransferase 22 IU/L (<50); Albumin 3.9 g/dL (3.5-5.0); Albumin Globulin Ratio 1.9 (1.0-2.8); Alkaline Phosphatase 53 U/L (38-126); Aspartate Aminotransferase 20 IU/L (17-59); BUN Creatinine Ratio 31.2 (6-22); Bilirubin Total 0.7 mg/dL (0.2-1.3); Blood Urea Nitrogen 24 mg/dL (9-20); Calcium 9.3 mg/dL (8.4-10.2); Carbon Dioxide 27 mmol/L (22-32); Chloride 107 mmol/L (98-107); Estimated Glomerular Filt Rate > 60.0 mL/min (>60); Globulin 2.1 g/dL (1.7-4.1); Glucose 136 mg/dL (80-110); HEMOLYSIS < 15 (0-50); Potassium 4.2 mmol/L (3.4-5.1); Sodium 140 mmol/L (137-145)
[2021-04-30 23:36] LABS: Cholesterol,Total 152 mg/dL (100-199); HDL Cholesterol 76 mg/dL (>39); LDL Cholesterol Cal 61 mg/dL (0-99); Triglycerides 77 mg/dL (0-149); VLDL Cholesterol Cal 15 mg/dL (5-40)
== END ==
PROVIDERS: PCP Obstetrics & Gynecology Obstetrics; Referring Provider Obstetrics & Gynecology Obstetrics; Visit Provider Obstetrics & Gynecology Obstetrics
DX: E11.9 Type 2 diabetes mellitus without complications (principal); E78.5 Hyperlipidemia, unspecified
CPT/HCPCS: 36415; 80053; 80061; 83036

== ENCOUNTER → 2021-07-26 07:25 | Outpatient (CLI) | payer MEDICARE, BC, SELFPAY ==
[2021-07-26 07:52] LABS: Hemoglobin A1C% w Est Avg Glu 5.8 % (4.0-6.0)
[2021-07-26 08:04] LABS: Alanine Aminotransferase 21 IU/L (<50); Albumin 4.4 g/dL (3.5-5.0); Albumin Globulin Ratio 2.2 (1.0-2.8); Alkaline Phosphatase 55 U/L (38-126); Aspartate Aminotransferase 23 IU/L (17-59); BUN Creatinine Ratio 33.3 (6-22); Bilirubin Total 0.9 mg/dL (0.2-1.3); Blood Urea Nitrogen 25 mg/dL (9-20); Calcium 9.6 mg/dL (8.4-10.2); Carbon Dioxide 29 mmol/L (22-32); Chloride 106 mmol/L (98-107); Cholesterol 148 mg/dL (140-199); Estimated Glomerular Filt Rate > 60.0 mL/min (>60); Glucose 124 mg/dL (80-110); HDL Cholesterol 91 mg/dL (40-60); HEMOLYSIS < 15 (0-50); LDL Cholesterol Calculated 44 mg/dL (<100); Potassium 3.9 mmol/L (3.4-5.1); Sodium 141 mmol/L (137-145); Total Protein 6.4 g/dL (6.3-8.2); Triglycerides 65 mg/dL (35-150)
== END ==
PROVIDERS: PCP Obstetrics & Gynecology Obstetrics; Referring Provider Obstetrics & Gynecology Obstetrics; Visit Provider Obstetrics & Gynecology Obstetrics
DX: E11.65 Type 2 diabetes mellitus with hyperglycemia (principal); E78.5 Hyperlipidemia, unspecified
CPT/HCPCS: 36415; 80053; 80061; 83036

== ENCOUNTER → 2021-10-03 14:11 | Outpatient (CLI) | payer MEDICARE, BC, SELFPAY ==
--- NOTE | 2021-10-03 14:13 | DI.MRI.S_ITS ---
PROCEDURE: MR ANKLE LT WO CON INDICATIONS: LEFT HEEL PAIN TECHNIQUE: Noncontrast sagittal T1 spin echo and T2 fast spin echo with fat saturation, axial proton density fast spin echo and T2 fast spin echo with fat saturation, coronal T1 spin echo and T2 fast spin echo with fat saturation through the ankle/hindfoot. COMPARISON: [facility], CR, XR CALCANEUS LEFT, 09/19/2021, 10:52. FINDINGS: Image quality: Excellent. Bones and joints: No bone marrow contusions or fractures. No hindfoot coalitions. No osteochondral injuries of the talar dome. Degenerative changes are seen at the 1st tarsometatarsal joint with subchondral cystic changes. Medial structures: The deep and superficial layers of the deltoid ligament appear intact. The spring ligament components are intact. The posterior tibialis, flexor digitorum longus, and flexor hallucis longus tendons are intact. The posterior tibial neurovascular bundle appears normal within the tarsal tunnel, without extrinsic mass effect. Lateral structures: Chronic complete tearing of the anterior talofibular ligament is noted. The calcaneofibular ligament and the posterior talofibular ligament are intact. The anterior and posterior tibiofibular ligaments appear intact. The peroneus longus and brevis tendons demonstrate normal location and morphology. The sinus tarsi demonstrates normal fatty signal, without edema, fibrosis, or cyst formation. Anterior structures: The tibialis anterior, extensor hallucis longus, and extensor digitorum longus tendons appear intact. The dorsal talonavicular ligament appears intact. Posterior and plantar structures: Achilles tendon is intact. There is marked thickening of the proximal plantar fascia with increased T2 signal intensity and surrounding soft tissue and osseous edema. A plantar calcaneal enthesophyte is seen without a calcaneal fracture identified. No abductor digiti quinti muscle atrophy to suggest Zhao neuropathy. IMPRESSION: 1. Partial-thickness tearing of the proximal plantar fascia at its origin with surrounding soft tissue and osseous edema. No acute osseous fracture. Findings are superimposed on chronic fasciitis. 2. Chronic complete tearing of the anterior talofibular ligament. 3. Moderate 1st tarsometatarsal osteoarthrosis. Dictated by: Ajay Stratton M.D. on 10/03/2021 at 16:10 Approved by: Ajay Stratton M.D. on 10/03/2021 at 16:20
== END ==
PROVIDERS: PCP Obstetrics & Gynecology Obstetrics; Referring Provider Podiatrist; Visit Provider Podiatrist
DX: S96.812A Strain of other specified muscles and tendons at ankle and foot level, left foot, initial encounter (principal); S93.492A Sprain of other ligament of left ankle, initial encounter; M19.072 Primary osteoarthritis, left ankle and foot; M72.2 Plantar fascial fibromatosis; M79.672 Pain in left foot
CPT/HCPCS: 73721

== ENCOUNTER → 2021-10-30 07:29 | Outpatient (CLI) | payer MEDICARE, BC, SELFPAY ==
[2021-10-30 08:29] LABS: Alanine Aminotransferase 23 IU/L (<50); Albumin 4.3 g/dL (3.5-5.0); Albumin Globulin Ratio 1.9 (1.0-2.8); Alkaline Phosphatase 54 U/L (38-126); Aspartate Aminotransferase 24 IU/L (17-59); BUN Creatinine Ratio 29.7 (6-22); Blood Urea Nitrogen 22 mg/dL (9-20); Calcium 9.4 mg/dL (8.4-10.2); Carbon Dioxide 32 mmol/L (22-32); Chloride 104 mmol/L (98-107); Cholesterol 157 mg/dL (140-199); Estimated Glomerular Filt Rate > 60 mL/min (>60); Globulin 2.3 g/dL (1.7-4.1); Glucose 118 mg/dL (80-110); HDL Cholesterol 94 mg/dL (40-60); HEMOLYSIS < 15 (0-50); LDL Cholesterol Calculated 54 mg/dL (<100); Potassium 4.6 mmol/L (3.4-5.1); Sodium 139 mmol/L (137-145); Total Protein 6.6 g/dL (6.3-8.2); Triglycerides 45 mg/dL (35-150)
== END ==
PROVIDERS: PCP Obstetrics & Gynecology Obstetrics; Referring Provider Obstetrics & Gynecology Obstetrics; Visit Provider Obstetrics & Gynecology Obstetrics
DX: E11.9 Type 2 diabetes mellitus without complications (principal); E78.5 Hyperlipidemia, unspecified
CPT/HCPCS: 36415; 80053; 80061; 83036

== ENCOUNTER → 2022-01-28 07:55 | Outpatient (CLI) | payer MEDICARE, BC, SELFPAY ==
[2022-01-28 10:08] LABS: Hemoglobin A1C% w Est Avg Glu 5.9 % (4.0-6.0)
[2022-01-28 10:20] LABS: Alanine Aminotransferase 25 IU/L (<50); Albumin 4.3 g/dL (3.5-5.0); Alkaline Phosphatase 57 U/L (38-126); Aspartate Aminotransferase 24 IU/L (17-59); BUN Creatinine Ratio 29.7 (6-22); Bilirubin Total 0.7 mg/dL (0.2-1.3); Blood Urea Nitrogen 22 mg/dL (9-20); Calcium 9.7 mg/dL (8.4-10.2); Carbon Dioxide 29 mmol/L (22-32); Chloride 101 mmol/L (98-107); Cholesterol 158 mg/dL (140-199); Estimated Glomerular Filt Rate > 60 mL/min (>60); Globulin 2.2 g/dL (1.7-4.1); Glucose 125 mg/dL (80-110); HDL Cholesterol 94 mg/dL (40-60); HEMOLYSIS < 15 (0-50); LDL Cholesterol Calculated 54 mg/dL (<100); Potassium 4.2 mmol/L (3.4-5.1); Sodium 138 mmol/L (137-145); Total Protein 6.5 g/dL (6.3-8.2); Triglycerides 49 mg/dL (35-150)
== END ==
PROVIDERS: PCP Obstetrics & Gynecology Obstetrics; Referring Provider Obstetrics & Gynecology Obstetrics; Visit Provider Obstetrics & Gynecology Obstetrics
DX: E11.9 Type 2 diabetes mellitus without complications (principal); E78.5 Hyperlipidemia, unspecified; K51.90 Ulcerative colitis, unspecified, without complications; M54.50 Low back pain, unspecified; G89.29 Other chronic pain
CPT/HCPCS: 36415; 80053; 80061; 83036

== ENCOUNTER → 2022-04-14 07:30 | Outpatient (CLI) | payer MEDICARE, BC, SELFPAY ==
[2022-04-14 08:37] LABS: Alanine Aminotransferase 27 IU/L (<50); Albumin 4.3 g/dL (3.5-5.0); Albumin Globulin Ratio 1.7 (1.0-2.8); Alkaline Phosphatase 64 U/L (38-126); Aspartate Aminotransferase 21 IU/L (17-59); BUN Creatinine Ratio 30.9 (6-22); Bilirubin Total 0.9 mg/dL (0.2-1.3); Blood Urea Nitrogen 21 mg/dL (9-20); Calcium 9.5 mg/dL (8.4-10.2); Carbon Dioxide 29 mmol/L (22-32); Chloride 101 mmol/L (98-107); Cholesterol 179 mg/dL (140-199); Estimated Glomerular Filt Rate > 60 mL/min (>60); Globulin 2.6 g/dL (1.7-4.1); Glucose 139 mg/dL (80-110); HDL Cholesterol 97 mg/dL (40-60); HEMOLYSIS < 15 (0-50); LDL Cholesterol Calculated 67 mg/dL (<100); Sodium 138 mmol/L (137-145); Total Protein 6.9 g/dL (6.3-8.2); Triglycerides 75 mg/dL (35-150)
[2022-04-14 08:40] LABS: Hemoglobin A1C% w Est Avg Glu 6.6 % (4.0-6.0)
== END ==
PROVIDERS: PCP Obstetrics & Gynecology Obstetrics; Referring Provider Obstetrics & Gynecology Obstetrics; Visit Provider Obstetrics & Gynecology Obstetrics
DX: E11.9 Type 2 diabetes mellitus without complications (principal); E78.5 Hyperlipidemia, unspecified
CPT/HCPCS: 36415; 80053; 80061; 83036

== ENCOUNTER → 2022-07-24 06:59 | Outpatient (CLI) | payer MEDICARE, OTHER, SELFPAY ==
[2022-07-24 08:02] LABS: Alanine Aminotransferase 24 IU/L (<50); Albumin 4.1 g/dL (3.5-5.0); Albumin Globulin Ratio 1.8 (1.0-2.8); Alkaline Phosphatase 56 U/L (38-126); Aspartate Aminotransferase 23 IU/L (17-59); BUN Creatinine Ratio 24.7 (6-22); Blood Urea Nitrogen 18 mg/dL (9-20); Calcium 9.2 mg/dL (8.4-10.2); Carbon Dioxide 30 mmol/L (22-32); Chloride 100 mmol/L (98-107); Estimated Glomerular Filt Rate > 60 mL/min (>60); Globulin 2.3 g/dL (1.7-4.1); Glucose 136 mg/dL (80-110); HEMOLYSIS < 15 (0-50); Potassium 4.1 mmol/L (3.4-5.1); Sodium 138 mmol/L (137-145); Total Protein 6.4 g/dL (6.3-8.2)
[2022-07-25 09:38] LABS: Labcorp Hemoglobin (Hb) A1c 6.2 % (4.8-5.6)
[2022-07-25 16:43] LABS: Cholesterol HDL Ratio 1.9 ratio (0.0-5.0); Cholesterol,Total 163 mg/dL (100-199); HDL Cholesterol 87 mg/dL (>39); LDL Cholesterol Cal 65 mg/dL (0-99); Triglycerides 56 mg/dL (0-149); VLDL Cholesterol Cal 11 mg/dL (5-40)
== END ==
PROVIDERS: PCP Obstetrics & Gynecology Obstetrics; Referring Provider Obstetrics & Gynecology Obstetrics; Visit Provider Obstetrics & Gynecology Obstetrics
DX: E11.9 Type 2 diabetes mellitus without complications (principal); E78.5 Hyperlipidemia, unspecified
CPT/HCPCS: 36415; 80053; 80061; 83036

== ENCOUNTER 2022-07-29 13:51 | Observation (INO) | payer MEDICARE, OTHER, SELFPAY ==
[2022-07-29] VITALS (18 sets, daily range): BP systolic 125–157; BP diastolic 67–85; PULSE 62–75; RESP 16–24; TEMP 36.1–36.3; O2SAT 93–99; BMI 29.1
--- NOTE | 2022-07-29 13:58 | DI.RAD.S_ITS ---
PROCEDURE: XR CHEST 1V INDICATIONS: Shortness of breath TECHNIQUE: One view of the chest was acquired. COMPARISON: [facility], , CHEST 2 VIEW, 01/30/2017, 12:26. [facility], , XR CHEST 2V, 06/25/2019, 10:35. FINDINGS: Surgical changes and devices: None. Lungs and pleura: Mild elevation of the left hemidiaphragm with atelectasis or scarring of the left lung base. Lungs are otherwise clear. No pleural effusion or pneumothorax. Mediastinum: Mediastinal contours appear normal. Heart size is normal. Bones and chest wall: No suspicious bony lesions. Overlying soft tissues appear unremarkable. IMPRESSION: Mild elevation of the left hemidiaphragm with associated basilar scarring or atelectasis. No acute cardiopulmonary abnormality. Approved by: Ajay Stratton M.D. on 07/29/2022 at 15:41
[2022-07-29 14:24] LABS: Alanine Aminotransferase 25 IU/L (<50); Albumin 4.5 g/dL (3.5-5.0); Albumin Globulin Ratio 1.5 (1.0-2.8); Alkaline Phosphatase 63 U/L (38-126); Aspartate Aminotransferase 23 IU/L (17-59); BUN Creatinine Ratio 25.7 (6-22); Bilirubin Total 1.1 mg/dL (0.2-1.3); Blood Urea Nitrogen 19 mg/dL (9-20); Calcium 9.9 mg/dL (8.4-10.2); Carbon Dioxide 27 mmol/L (22-32); Chloride 103 mmol/L (98-107); Estimated Glomerular Filt Rate > 60 mL/min (>60); Globulin 3.1 g/dL (1.7-4.1); Glucose 107 mg/dL (80-110); HEMOLYSIS < 15 (0-50); Potassium 4.2 mmol/L (3.4-5.1); Sodium 137 mmol/L (137-145); Total Protein 7.6 g/dL (6.3-8.2)
[2022-07-29 14:27] LABS: Add Manual Diff / Slide Review NO; Basophils Absolute Auto 0 /uL (0-100); Basophils Percent Auto 0.5 % (0-2); Eosinophils Absolute Auto 300 /uL (0-450); Hematocrit 42.3 % (41-53); Hemoglobin 14.3 g/dL (13.5-17.5); Lymphocytes Absolute Auto 1600 /uL (1100-4500); Lymphocytes Percent Auto 22.4 % (25-40); Mean Corpuscular HGB Conc 33.7 % (30-36); Mean Corpuscular Hemoglobin 32.1 PG (26-34); Mean Corpuscular Volume 95.2 fL (80-100); Monocytes Absolute Auto 600 /uL (0-900); Monocytes Percent Auto 8.1 % (3-14); Neutrophils Absolute Auto 4700 /uL (1500-7000); Platelet Count 284 X10^3/uL (150-400); Red Blood Cell Count 4.45 X10^6/uL (4.5-5.9); Red Cell Distribution Width 12.9 % (11.6-14.8); White Blood Cell Count 7.2 X10^3/uL (4.5-11.0)
[2022-07-29 14:29] LABS: Prothrombin Time 11.3 SECONDS (10.1-12.7)
[2022-07-29 14:35] LABS: NT-proBNP (BNP-Adult 18+) 18 pg/mL (<125); Troponin I < 0.012 ng/mL (0.01-0.034)
--- NOTE | 2022-07-29 15:03 | ED.SOB ---
HPI - SOB/Dyspnea General Chief Complaint: Shortness of Breath/Dyspnea Stated Complaint: SOB/feeling like going to pass out T-4 Time Seen by Provider: 07/29/22 14:53 Source: patient Mode of arrival: Ambulatory Limitations: no limitations History of Present Illness HPI Narrative: Patient is a 71-year-old male history of hyperlipidemia, diabetes asthma presenting today with increasing shortness of breath with exertion. He reports that they went to spring training 2 weeks ago, flew back on July 09. reports that she got COVID however they been doing home COVID test he never popped positive for COVID. He denies any fever or chills. He has no shortness of breath chest pain at rest. He says they go on a walk every single day it is quite heavily. Yesterday he was walking up the hill had to stop. He reports that this is never happened to him before. He denies any chest pain during the time. No lower extremity edema. Related Data Home Medications Medication Instructions Recorded Confirmed budesonide 0.5 mg/2 mL suspension 2 ml inhalation BID PRN Sinus 06/25/19 01/26/21 for nebulization Symptoms finasteride 5 mg tablet 5 mg PO DAILY 06/25/19 01/26/21 hydrocodone 5 mg-acetaminophen 325 1 tab PO QID PRN Pain (Scale Score 06/25/19 01/26/21 mg tablet 7-10) ciclesonide 160 mcg/actuation 1 puff inhalation DAILY 08/01/20 01/26/21 aerosol inhaler (Alvesco) mesalamine 400 mg capsule (with 400 mg PO BID 08/01/20 01/26/21 delayed release tablets inside) (Delzicol) metformin 500 mg tablet 500 mg PO DAILY 08/01/20 01/26/21 montelukast 10 mg tablet 10 mg PO DAILY 08/01/20 01/26/21 rosuvastatin 10 mg tablet 10 mg PO DAILY 08/01/20 01/26/21 tamsulosin 0.4 mg capsule 0.4 mg PO DAILY 08/01/20 01/26/21 Allergies Allergy/AdvReac Type Severity Reaction Status Date / Time rivaroxaban [From XARELTO] Allergy Severe THOUGHT HE Verified 01/26/21 13:07 WAS HAVING A HEART ATTACK Review of Systems Review of Systems ROS Unobtainable: All systems reviewed & are unremarkable except as noted in HPI and below Patient History Medical History Skin tear Viral syndrome Social History household members: spouse Smoking Status: Former smoker alcohol intake: current Smoking Status: Former smoker alcohol intake frequency: 0-2 drinks per day Substance Use Type: does not use Exam Initial Vital Signs Initial Vital Signs: Vital Signs Temperature 97.4 F L 07/29/22 13:54 Pulse Rate 72 07/29/22 13:54 Respiratory Rate 16 07/29/22 13:54 Blood Pressure 157/85 H 07/29/22 13:54 Pulse Oximetry 97 07/29/22 13:54 Oxygen Delivery Method Room Air 07/29/22 13:54 GENERAL: Alert pleasant well-appearing 71-year-old male and in no acute distress. HEENT: Head atraumatic,EOMI, pupils reactive, face symmetric, moist mucous membranes CARDIOVASCULAR: Regular rate and rhythm without murmurs, rubs or gallops. RESPIRATORY: Breath sounds equal bilaterally, no wheezes rales or rhonchi. ABDOMEN: Soft, nontender. Normoactive bowel sounds all 4 quadrants. No guarding or rebound. EXTREMITIES: Normal range of motion, no clubbing or edema. Neurovascularly intact NEUROLOGICAL: Alert and oriented x4.Normal gait and speech. SKIN: Warm, dry, no laceration, no petechiae, no rashes or lesions. Course Orders Ordered: ED Orders 07/29/22 13:58 XR chest 1V Stat 07/29/22 14:03 Complete Blood Count AUTO DIFF Stat Comprehensive Metabolic Panel Stat Lactate (Lactic Acid) Stat NT-proBNP (BNP-Adult 18+) Stat Prothrombin Time INR Stat Troponin I Stat 07/29/22 14:07 EKG-12 Lead Stat 07/29/22 15:20 Covid-19 + FLU A/B + RSV - PCR Stat 07/29/22 15:43 CT angio chest PE protocol Stat 07/29/22 15:55 Urine Culture Stat Urine Microscopic Stat 07/29/22 17:00 EC echo doppler complete Urgent stress [NM uyan perf SPECT rest & str] Urgent 07/29/22 22:00 Troponin I Urgent 07/30/22 05:00 Complete Blood Count AUTO DIFF DAILY Comprehensive Metabolic Panel DAILY Hemoglobin A1C% w Est Avg Glu Routine Lipid Panel Routine Magnesium DAILY TSH w/ Reflex to FT4 Routine 07/31/22 05:00 Complete Blood Count AUTO DIFF DAILY Comprehensive Metabolic Panel DAILY Magnesium DAILY 08/01/22 05:00 Complete Blood Count AUTO DIFF DAILY Comprehensive Metabolic Panel DAILY Magnesium DAILY Acetaminophen (Acetaminophen 325 Mg Tablet) 650 mg PO Q6H PRN PRN Reason: Fever/Mild Pain (1-3) Enoxaparin Sodium (Enoxaparin 40 Mg/0.4 Ml Syringe) 40 mg SUBCUT DAILY SOFIA Naloxone HCl (Naloxone 0.4 Mg/Ml Vial) 0.2 mg IV Q2MIN PRN PRN Reason: Opiate Reversal Ondansetron HCl (Ondansetron 4 Mg/2 Ml Inj) 4 mg IV Q8HR PRN PRN Reason: Nausea And Vomiting Discontinued Medications Albuterol/Ipratropium (Albuterol/Ipratropium 3 Ml Ampul) 3 ml INH NOW ONE Stop: 07/29/22 15:11 Last Admin: 07/29/22 15:20 Dose: 3 ml Documented By: JOCELYNN Vital Signs Vital signs: Vital Signs - 8 hr 07/29/22 13:54 07/29/22 14:41 07/29/22 15:21 Temperature 97.4 F L Pulse Rate 72 72 70 Respiratory Rate 16 24 Blood Pressure 157/85 H 134/67 Pulse Oximetry 97 97 97 Oxygen Delivery Method Room Air Room Air Room Air 07/29/22 14:39 07/29/22 14:40 07/29/22 14:40 Temperature Pulse Rate 72 72 Respiratory Rate Blood Pressure 134/67 Pulse Oximetry 97 97 Oxygen Delivery Method 07/29/22 14:50 07/29/22 14:50 07/29/22 15:00 Temperature Pulse Rate 71 Respiratory Rate 22 Blood Pressure 128/68 127/75 Pulse Oximetry 96 Oxygen Delivery Method 07/29/22 15:00 07/29/22 15:30 07/29/22 15:30 Temperature Pulse Rate 72 71 Respiratory Rate 17 22 Blood Pressure 125/70 Pulse Oximetry 96 94 Oxygen Delivery Method 07/29/22 15:59 07/29/22 15:59 07/29/22 16:00 Temperature Pulse Rate 70 Respiratory Rate 20 Blood Pressure 125/71 131/72 Pulse Oximetry 99 Oxygen Delivery Method 07/29/22 16:00 07/29/22 16:30 04/04/23 16:30 Temperature Pulse Rate 69 72 Respiratory Rate 21 21 Blood Pressure 132/79 Pulse Oximetry 99 98 Oxygen Delivery Method MDM - SOB/Dyspnea Lab Data 07/29/22 14:03 07/29/22 14:03 Labs: Lab Results 07/29/22 07/29/22 07/29/22 Range/Units 14:03 14:03 14:03 WBC 7.2 (4.5-11.0) X10^3/uL RBC 4.45 L (4.5-5.9) X10^6/uL Hgb 14.3 (13.5-17.5) g/dL Hct 42.3 (41-53) % MCV 95.2 (80-100) fL MCH 32.1 (26-34) PG MCHC 33.7 (30-36) % RDW 12.9 (11.6-14.8) % Plt Count 284 (150-400) X10^3/uL Neut % (Auto) 65.0 (50-75) % Lymph % (Auto) 22.4 L (25-40) % Pettis % (Auto) 8.1 (3-14) % Eos % (Auto) 4.0 (2-4) % Baso % (Auto) 0.5 (0-2) % Neut # (Auto) 4700 (1030-9871) /uL Lymph # (Auto) 1600 (8994-0046) /uL Pettis # (Auto) 600 (0-900) /uL Eos # (Auto) 300 (0-450) /uL Baso # (Auto) 0 (0-100) /uL PT 11.3 (10.1-12.7) SECONDS INR 1.0 (0.9-1.3) Sodium 137 (137-145) mmol/L Potassium 4.2 (3.4-5.1) mmol/L Chloride 103 (98-107) mmol/L Carbon Dioxide 27 (22-32) mmol/L BUN 19 (9-20) mg/dL Creatinine 0.74 (0.66-1.25) mg/dL Estimated GFR > 60 (>60) mL/min BUN/Creatinine Ratio 25.7 H (6-22) Glucose 107 (80-110) mg/dL Lactate (0.7-2.1) mmol/L Calcium 9.9 (8.4-10.2) mg/dL Total Bilirubin 1.1 (0.2-1.3) mg/dL AST 23 (17-59) IU/L ALT 25 (<50) IU/L Alkaline Phosphatase 63 (38-126) U/L Troponin I < 0.012 (0.01-0.034) ng/mL NT-Pro-B Natriuret Pep 18 (<125) pg/mL Total Protein 7.6 (6.3-8.2) g/dL Albumin 4.5 (3.5-5.0) g/dL Globulin 3.1 (1.7-4.1) g/dL Albumin/Globulin Ratio 1.5 (1.0-2.8) Urine RBC (0-5/HPF) Urine WBC (0-5/HPF) Urine Bacteria (None) SARS-CoV-2 (PCR) (Negative) Influenza A (RT-PCR) (NEGATIVE) Influenza B (RT-PCR) (NEGATIVE) RSV (PCR) (Negative) 07/29/22 07/29/22 07/29/22 Range/Units 14:03 15:20 15:55 WBC (4.5-11.0) X10^3/uL RBC (4.5-5.9) X10^6/uL Hgb (13.5-17.5) g/dL Hct (41-53) % MCV (80-100) fL MCH (26-34) PG MCHC (30-36) % RDW (11.6-14.8) % Plt Count (150-400) X10^3/uL Neut % (Auto) (50-75) % Lymph % (Auto) (25-40) % Pettis % (Auto) (3-14) % Eos % (Auto) (2-4) % Baso % (Auto) (0-2) % Neut # (Auto) (5535-9767) /uL Lymph # (Auto) (7943-9750) /uL Pettis # (Auto) (0-900) /uL Eos # (Auto) (0-450) /uL Baso # (Auto) (0-100) /uL PT (10.1-12.7) SECONDS INR (0.9-1.3) Sodium (137-145) mmol/L Potassium (3.4-5.1) mmol/L Chloride (98-107) mmol/L Carbon Dioxide (22-32) mmol/L BUN (9-20) mg/dL Creatinine (0.66-1.25) mg/dL Estimated GFR (>60) mL/min BUN/Creatinine Ratio (6-22) Glucose (80-110) mg/dL Lactate 1.0 (0.7-2.1) mmol/L Calcium (8.4-10.2) mg/dL Total Bilirubin (0.2-1.3) mg/dL AST (17-59) IU/L ALT (<50) IU/L Alkaline Phosphatase (38-126) U/L Troponin I (0.01-0.034) ng/mL NT-Pro-B Natriuret Pep (<125) pg/mL Total Protein (6.3-8.2) g/dL Albumin (3.5-5.0) g/dL Globulin (1.7-4.1) g/dL Albumin/Globulin Ratio (1.0-2.8) Urine RBC 0-1/hpf (0-5/HPF) Urine WBC 0-1/hpf (0-5/HPF) Urine Bacteria None seen (None) SARS-CoV-2 (PCR) Negative (Negative) Influenza A (RT-PCR) Flu a negative (NEGATIVE) Influenza B (RT-PCR) Flu b negative (NEGATIVE) RSV (PCR) Negative (Negative) Urine Dip Bedside Urine Glucose Negative Bedside Urine Bilirubin - Negative Bedside Urine Ketone - Negative Urine Specific Jackson 1.015 Bedside Urine Occult Blood +/- Bedside Urine pH 6.0 Bedside Urine Protein - Negative Bedside Urine Urobilinogen - Negative Bedside Urine Nitrite - Negative Bedside Urine Leukocytes - Negative Esterase Imaging Data Chest x-ray: Radiologist's Impression: PROCEDURE:? XR CHEST 1V ? INDICATIONS:? Shortness of breath ? TECHNIQUE:? One view of the chest was acquired.? ? [facility], [facility]2019, 10:35. ? FINDINGS:? ? Surgical changes and devices:? None.? ? Lungs and pleura:? Mild elevation of the left hemidiaphragm with atelectasis or scarring of the left lung base.? Lungs are otherwise clear.? No pleural effusion or pneumothorax. ? Mediastinum:? Mediastinal contours appear normal.? Heart size is normal.? ? Bones and chest wall:? No suspicious bony lesions.? Overlying soft tissues appear unremarkable.? ? IMPRESSION:? Mild elevation of the left hemidiaphragm with associated basilar scarring or atelectasis. No acute cardiopulmonary abnormality.? ? ? Approved by: Ajay Stratton M.D. on 07/29/2022 at 15:41? CT scan - chest: Radiologist's Impression: PROCEDURE:? CT ANGIO CHEST PE PROTOCOL ? INDICATIONS:? hypoxia ? TECHNIQUE:? After the administration of intravenous contrast, 2 mm thick sections acquired from the pulmonary apices to the posterior costophrenic angles.? 3-dimensional maximum intensity projection (MIP) coronal and sagittal reformats were then acquired through the thorax.? For radiation dose reduction, the following was used:? automated exposure control, adjustment of mA and/or kV according to patient size.? ? COMPARISON:? [facility], CR, XR CHEST 1V, 07/29/2022, 14:37. ? FINDINGS:? Image quality:? Pulmonary artery contrast opacification is considered suboptimal for evaluation of segmental emboli. ? Pulmonary arteries:? Pulmonary arteries are normal in size, and demonstrate no intraluminal filling defects to suggest central pulmonary embolism.? ? Lungs and pleura:? Mild appearance of large confluent area of ground-glass opacity within the left base. ? Mediastinum:? Heart size is normal, without pericardial effusion.? No mediastinal or hilar adenopathy.? Thoracic aorta is normal in caliber and enhancement.? Esophagus is normal in caliber, without hiatal hernia.? ? Bones and chest wall:? No suspicious bony lesions.? Ribs and thoracic spine appear intact throughout.? Thyroid gland is unremarkable.? No axillary or supraclavicular adenopathy.? ? Abdomen:? Visualized upper abdominal solid organs appear normal in the early arterial phase of enhancement.? ? IMPRESSION:? ? Prominent left basilar ground-glass opacity suggestive of infection/inflammation.? Recommend interval follow-up to document resolution. ? No central pulmonary embolism. ? ? Dictated by: Nevin Cruz M.D. on 07/29/2022 at 16:44 ? ? Approved by: Nevin Cruz M.D. on 07/29/2022 at 16:46 ? ECG Data Interpretation: Sinus rhythm rate 76 VA interval [address]RS [address] changes T-wave inversions, RBBB new from 2020 [facility] Narrative Medical decision making narrative: Patient is 71-year-old male history of hyperlipidemia, diabetes presenting today with increasing dyspnea on exertion over the last 4 days. It has increased where he can not walk uphill. He is no symptoms at rest. Recently traveled on an airplane. He is not tachycardic or hypoxic however concerns still for pulmonary embolism. CT angio is negative it does show prominent left basilar ground-glass [place] questionable infection versus inflammation. Patient does not have any fever chills or cough. Viral panel is also negative for COVID which just had. Symptoms are certainly concerning for acute coronary syndrome. He is no EKG changes. He has 2- troponins normal electrolytes no ASAF or leukocytosis or anemia. Blood work is overall reassuring. Dr. Santana updtaed on patient's symptoms and test results kindly accepts patient for chest pain observation. Discharge Plan Departure Patient Disposition: Admitted as Observation Clinical Impression: Chest pain Admit Date/Time: 07/29/22 16:59 Admit Provider: Nixon Santana
[2022-07-29] MEDS: ALBUTEROL/IPRATROPIUM 3 ML AMPUL INH (15:20)
--- NOTE | 2022-07-29 15:43 | DI.CT.S_ITS ---
PROCEDURE: CT ANGIO CHEST PE PROTOCOL INDICATIONS: hypoxia TECHNIQUE: After the administration of intravenous contrast, 2 mm thick sections acquired from the pulmonary apices to the posterior costophrenic angles. 3-dimensional maximum intensity projection (MIP) coronal and sagittal reformats were then acquired through the thorax. For radiation dose reduction, the following was used: automated exposure control, adjustment of mA and/or kV according to patient size. COMPARISON: [facility], CR, XR CHEST 1V, 07/29/2022, 14:37. FINDINGS: Image quality: Pulmonary artery contrast opacification is considered suboptimal for evaluation of segmental emboli. Pulmonary arteries: Pulmonary arteries are normal in size, and demonstrate no intraluminal filling defects to suggest central pulmonary embolism. Lungs and pleura: Mild appearance of large confluent area of ground-glass opacity within the left base. Mediastinum: Heart size is normal, without pericardial effusion. No mediastinal or hilar adenopathy. Thoracic aorta is normal in caliber and enhancement. Esophagus is normal in caliber, without hiatal hernia. Bones and chest wall: No suspicious bony lesions. Ribs and thoracic spine appear intact throughout. Thyroid gland is unremarkable. No axillary or supraclavicular adenopathy. Abdomen: Visualized upper abdominal solid organs appear normal in the early arterial phase of enhancement. IMPRESSION: Prominent left basilar ground-glass opacity suggestive of infection/inflammation. Recommend interval follow-up to document resolution. No central pulmonary embolism. Dictated by: Nevin Cruz M.D. on 07/29/2022 at 16:44 Approved by: Nevin Cruz M.D. on 07/29/2022 at 16:46
[2022-07-29 16:14] LABS: Bacteria Urine None Seen; RBC Urine 0-1/HPF (0-5/HPF); WBC Urine 0-1/HPF (0-5/HPF)
[2022-07-29 16:14] LABS: COVID-19 CEPHEID 4-PLEX PCR Negative (Negative); Influenza A - CEPHEID Flu A NEGATIVE (NEGATIVE); Influenza B - CEPHEID Flu B NEGATIVE (NEGATIVE); Respiratory Syncytial Virus Negative (Negative)
--- NOTE | 2022-07-29 17:00 | DI.NM.S_ITS ---
PROCEDURE: NM RACHEL PERF SPECT REST & STR Rest and exercise myocardial perfusion SPECT with gated imaging and ejection fraction RADIOPHARMACEUTICAL: 10 mCi Tc-99m sestamibi IV at rest and 27.1 mCi Tc-99m sestamibi IV at peak exercise. A one day-protocol was performed. INDICATIONS: chest pain, dyspnea on exertion TECHNIQUE: Radiopharmaceutical was injected at peak stress test, and also at rest. SPECT images were obtained. SPECT myocardial perfusion images were displayed in short axis, horizontal long axis, and vertical long axis views. Gated images were reviewed using NuenzQUANT software. COMPARISON: None. CARDIAC STRESS: A standard Wally treadmill exercise tolerance test was performed by the patient under the supervision of an attending staff. The patient exercised for 7 minutes and 46 seconds; functional aerobic impairment (WINSOME) is -12%. Hemodynamic data: There is normal blood pressure and heart rate response to exercise stress. Patient achieved 81% of maximum predicted heart rate at peak exercise. Symptoms: Patient denied chest pain during exercise. EKG: No diagnostic EKG changes of ischemia; occasional PACs. FINDINGS: Raw data: There is good myocardial labeling by radiotracer. No significant motion artifacts. Kzte-co-pvrba ratio is 0.22 (normal is less than 0.38 for sestamibi tracer, and less than 0.50 for thallium tracer). Left ventricle function: Gated images demonstrate normal left ventricle wall thickening. No segmental wall motion abnormality. No transient ischemic dilation; TID is 0.68 (normal less than 1.3). The left ventricle resting end-diastolic volume is 100 mL. Left ventricle stress ejection fraction is 73%; normal values are above 45%. Myocardial perfusion: No fixed or reversible perfusion defects based on stress prone images. IMPRESSION: Low risk, normal treadmill nuclear stress test with slightly reduced sensitivity as submaximal study (only 81% of maximum predicted heart rate reached). 1) No perfusion evidence of ischemia or infarction. 2) Normal left ventricular size, wall motion, and systolic function (EF post stress 73%). 3) No diagnostic ST changes during exercise or recovery. 4) No angina during the study. 5) Above average exercise tolerance (8.6METs, WINSOME -12%). Slightly submaximal study as only 81% of maximum predicted heart rate reached. 6) No prior nuclear stress test available for comparison. Dictated by: Lizbeth Landry MD on 07/30/2022 at 13:07 Approved by: Lizbeth Landry MD on 07/30/2022 at 13:11
--- NOTE | 2022-07-29 17:00 | DI.ECHO.S_ITS ---
[facility] +---------+ : : [address] : [place] : : : : [id number] : : : : Phone: [phone] Echocardiogram Report + + :Name: DEBBY ZAVALA Study Date: 07/30/2022 Height: 72 in : :[facility] ReadingLocation: Weight: 215 lb : : Gender: Male BSA: 2.2 m2 : :: 1950 Age: 71 yrs BP: 111/69 mmHg: :Reason For Study: DYSPNEA ON EXERTION : :Ordering Physician: STEPHENIE, : :ARTHUR WHITE Performed By: Suzanne Mahmood : :Referring: ARTHUR CASIANO : + + Interpretation Summary The ejection fraction is estimated to be 55-60%. Diastolic parameters suggest probable normal left ventricular diastolic function and normal filling pressures. The right ventricle is normal in size and function. There is mild tricuspid regurgitation. The right ventricular systolic pressure is estimated to be at least 22 mmHg based on an estimated right atrial pressure of 3 mm Hg. Procedure: A two-dimensional transthoracic echocardiogram with color flow and Doppler was performed. The study quality was technically adequate. There is no prior echocardiogram noted for this patient. The patient was in sinus rhythm with heart rates between 55-66 bpm during the exam. Left Ventricle: The left ventricle is normal in size and wall thickness. The ejection fraction is estimated to be 55-60%. Diastolic parameters suggest probable normal left ventricular diastolic function and normal filling pressures. Right Ventricle: The right ventricle is normal in size and function. Atria: The left atrial size is normal. Right atrial size is normal. There is no Doppler evidence for an interatrial shunt. Mitral Valve: The mitral valve leaflets appear normal. There is no evidence of stenosis, fluttering, or prolapse. There is mild mitral annular calcification. There is trace mitral regurgitation. Aortic Valve: The aortic valve is trileaflet. The aortic valve opens well. There is no aortic valve stenosis. No aortic regurgitation is present. Tricuspid Valve: The tricuspid valve is normal in structure and function. There is mild tricuspid regurgitation. The right ventricular systolic pressure is estimated to be at least 22 mmHg based on an estimated right atrial pressure of 3 mm Hg. Pulmonic Valve: The pulmonic valve leaflets are thin and pliable; valve motion is normal. There is trace pulmonic regurgitation. Great Vessels: The aortic root is normal size. The dimensions of the ascending aorta are normal. The IVC is of normal diameter and collapses greater than 50% with a sniff. This suggests a low right atrial pressure of 3 mm Hg. Pericardium/ Pleura There is no pericardial effusion. There is no pleural effusion. MMode/2D Measurements & Calculations LVIDd: 5.4 cm LVOT diam: 2.1 cm LVIDs: 3.5 cm Ao root diam: 3.7 cm FS: 34.3 % asc Aorta Diam: 3.7 cm EPSS: 0.86 cm Ao Arch Diam (Prox Trans): 3.2 cm IVSd: 0.65 cm LVPWd: 0.62 cm LV berg. diameter/BSA (cm/m^2): 2.4 LV sys. diameter/BSA (cm/m^2): 1.6 LA A2 area: 21.8 cm2 RA long axis: 5.7 cm LA A4 area: 18.1 cm2 RA area: 16.5 cm2 LA length (vol): 5.1 cm RA vol: 40.4 ml LA vol: 65.8 ml RA : 18.4 ml/m2 LA vol index: 29.9 ml/m2 IVC diam: 1.9 cm RVD1 (basal): 3.0 cm RVD2 (mid): 2.6 cm TAPSE: 1.7 cm Doppler Measurements & Calculations Ao V2 max: 113.1 cm/sec LVOT Max Kel: 86.6 cm/sec Ao V2 mean: 87.7 cm/sec LV V1 max P.0 mmHg Ao max P.1 mmHg LV V1 VTI: 18.7 cm Ao mean P.3 mmHg KRIS(I,D): 2.5 cm2 Ao V2 VTI: 25.0 cm KRIS(V,D): 2.6 cm2 sev ratio: 0.75 KRIS indexed to BSA (cm^2/m^2): 1.2 MV E max kel: 46.9 cm/sec TR max kel: 219.8 cm/sec MV A max kel: 65.8 cm/sec TR max P.3 mmHg MV E/A: 0.71 PA V2 max: 71.5 cm/sec Med Peak E' Kel: 5.9 cm/sec PA V2 mean: 51.7 cm/sec E/E' med: 7.9 PA mean P.2 mmHg Lat Peak E' Kel: 6.2 cm/sec PA pr(Accel): 37.9 mmHg E/E' lat: 7.5 E/e' average: 7.7 MV dec time: 0.27 sec SVLVOT): 63.3 ml Reading Physician:12:30 PM
[2022-07-29 20:17] LABS: Procalcitonin 0.06 ng/mL (<0.5)
--- NOTE | 2022-07-29 21:41 | PM.HP.1 ---
History of Present Illness History of Present Illness Date Patient Seen: 07/29/22 Time Patient Seen: 22:00 Chief complaint: SOB/feeling like going to pass out T-4 Narrative: Mr. Keller is a 71M with PMH afib s/p ablation, COPD, DM, ulcerative colitis who presents to the hospital with shortness of breath. He had been in his normal state of health until a few days ago when he started feeling short of breath. His became ill and had positive covid test. He has tested himself at home and has never been positive for COVID. He notes no chest pain. No cough. No fevers/chills. He is active and has noted progressively worsening shortness of breath with exertion that improves with rest. He has no leg swelling. In the ED workup was done, vitals notable for afebrile, heart rate 70s, respiratory rate normal, blood pressure 150s/80s, 97% on room air. Labs reviewed and notable for WBC 7.2, hgb 14.3, plts 284. Na 137, creatinine 0.74. Trop negative. Lactate 1.0. BNP normal. Procal normal. COVID, flu, and RSV negative. Chest xray shows mild elevation of left hemidiaphragm. CTA chest shows left basilar ground glass opacities. EKG shows no acute ischemia. He was admitted for further treatment. [facility] Medical History Skin tear Viral syndrome Social History household members: spouse Smoking Status: Former smoker alcohol intake: current Meds Home Medications and Allergies Home Medications Medication Instructions Recorded Confirmed Type budesonide 0.5 mg/2 mL suspension 2 ml inhalation BID PRN Sinus 06/25/19 07/29/22 History for nebulization Symptoms finasteride 5 mg tablet 5 mg PO DAILY 06/25/19 07/29/22 History hydrocodone 5 mg-acetaminophen 325 1 tab PO QID PRN Pain (Scale Score 06/25/19 07/29/22 History mg tablet 7-10) ciclesonide 160 mcg/actuation 1 puff inhalation DAILY 08/01/20 07/29/22 History aerosol inhaler (Alvesco) mesalamine 400 mg capsule (with 400 mg PO BID 08/01/20 07/29/22 History delayed release tablets inside) (Delzicol) metformin 500 mg tablet 500 mg PO BID 08/01/20 07/29/22 History montelukast 10 mg tablet 10 mg PO DAILY 08/01/20 07/29/22 History rosuvastatin 10 mg tablet 10 mg PO DAILY 08/01/20 07/29/22 History tamsulosin 0.4 mg capsule 0.4 mg PO DAILY 08/01/20 07/29/22 History Allergies Allergy/AdvReac Type Severity Reaction Status Date / Time rivaroxaban [From XARELTO] Allergy Severe THOUGHT HE Verified 01/26/21 13:07 WAS HAVING A HEART ATTACK Review of Systems Review of Systems Narrative: 14 systems reviewed and negative aside from what is noted in HPI Exam Vital Signs (past 8 hours): - 07/29/22 13:54 07/29/22 14:41 07/29/22 15:21 Temperature 97.4 F L Pulse Rate 72 72 70 Respiratory Rate 16 24 Blood Pressure 157/85 H 134/67 Pulse Oximetry 97 97 97 Oxygen Delivery Method Room Air Room Air Room Air Oxygen Flow Rate 07/29/22 14:39 07/29/22 14:40 07/29/22 14:40 Temperature Pulse Rate 72 72 Respiratory Rate Blood Pressure 134/67 Pulse Oximetry 97 97 Oxygen Delivery Method Oxygen Flow Rate 07/29/22 14:50 07/29/22 14:50 07/29/22 15:00 Temperature Pulse Rate 71 Respiratory Rate 22 Blood Pressure 128/68 127/75 Pulse Oximetry 96 Oxygen Delivery Method Oxygen Flow Rate 07/29/22 15:00 07/29/22 15:30 07/29/22 15:30 Temperature Pulse Rate 72 71 Respiratory Rate 17 22 Blood Pressure 125/70 Pulse Oximetry 96 94 Oxygen Delivery Method Oxygen Flow Rate 07/29/22 15:59 07/29/22 15:59 07/29/22 16:00 Temperature Pulse Rate 70 Respiratory Rate 20 Blood Pressure 125/71 131/72 Pulse Oximetry 99 Oxygen Delivery Method Oxygen Flow Rate 07/29/22 16:00 07/29/22 16:30 07/29/22 16:30 Temperature Pulse Rate 69 72 Respiratory Rate 21 21 Blood Pressure 132/79 Pulse Oximetry 99 98 Oxygen Delivery Method Oxygen Flow Rate 07/29/22 17:00 07/29/22 17:00 07/29/22 17:30 Temperature Pulse Rate 67 67 Respiratory Rate 21 20 Blood Pressure 128/75 Pulse Oximetry 96 Oxygen Delivery Method Oxygen Flow Rate 07/29/22 17:45 07/29/22 18:31 07/29/22 18:40 Temperature 97.0 F L 97.0 F L Pulse Rate 71 68 75 Respiratory Rate 22 16 16 Blood Pressure 136/75 136/75 Pulse Oximetry 99 99 Oxygen Delivery Method Oxygen Flow Rate 0 07/29/22 20:05 Temperature 97.4 F L Pulse Rate 62 Respiratory Rate 18 Blood Pressure 128/77 Pulse Oximetry 96 Oxygen Delivery Method Oxygen Flow Rate 0 Oxygen Delivery Method Room Air Oxygen Flow Rate 0 Narrative Exam Narrative: GEN: no acute distress HEENT: moist mucous membranes, PERRL NECK: trachea midline, no jvd PULM: clear bilaterally, no wheezes, rhonchi, rales CV: regular rate and rhythm, no murmurs ABD: soft, nontender, nondistended, no organomegaly, normal bowel sounds EXT: warm and well perfused with no edema NEURO: awake, alert, oriented, no focal deficits Objective Labs 07/29/22 14:03 07/29/22 14:03 Labs: Laboratory Results - last 24 hr 07/29/22 07/29/22 07/29/22 14:03 14:03 14:03 WBC 7.2 RBC 4.45 L Hgb 14.3 Hct 42.3 MCV 95.2 MCH 32.1 MCHC 33.7 RDW 12.9 Plt Count 284 Neut % (Auto) 65.0 Lymph % (Auto) 22.4 L [place] % (Auto) 8.1 Eos % (Auto) 4.0 Baso % (Auto) 0.5 Neut # (Auto) 4700 Lymph # (Auto) 1600 [place] # (Auto) 600 Eos # (Auto) 300 Baso # (Auto) 0 PT 11.3 INR 1.0 Sodium 137 Potassium 4.2 Chloride 103 Carbon Dioxide 27 BUN 19 Creatinine 0.74 Estimated GFR > 60 BUN/Creatinine Ratio 25.7 H Glucose 107 Lactate Calcium 9.9 Total Bilirubin 1.1 AST 23 ALT 25 Alkaline Phosphatase 63 Troponin I < 0.012 NT-Pro-B Natriuret Pep 18 Total Protein 7.6 Albumin 4.5 Globulin 3.1 Albumin/Globulin Ratio 1.5 Procalcitonin Urine RBC Urine WBC Urine Bacteria SARS-CoV-2 (PCR) Influenza A (RT-PCR) Influenza B (RT-PCR) RSV (PCR) 07/29/22 07/29/22 07/29/22 14:03 14:08 15:20 WBC RBC Hgb Hct MCV MCH MCHC RDW Plt Count Neut % (Auto) Lymph % (Auto) [place] % (Auto) Eos % (Auto) Baso % (Auto) Neut # (Auto) Lymph # (Auto) [place] # (Auto) Eos # (Auto) Baso # (Auto) PT INR Sodium Potassium Chloride Carbon Dioxide BUN Creatinine Estimated GFR BUN/Creatinine Ratio Glucose Lactate 1.0 Calcium Total Bilirubin AST ALT Alkaline Phosphatase Troponin I NT-Pro-B Natriuret Pep Total Protein Albumin Globulin Albumin/Globulin Ratio Procalcitonin 0.06 Urine RBC Urine WBC Urine Bacteria SARS-CoV-2 (PCR) Negative Influenza A (RT-PCR) Flu a negative Influenza B (RT-PCR) Flu b negative RSV (PCR) Negative 07/29/22 15:55 WBC RBC Hgb Hct MCV MCH MCHC RDW Plt Count Neut % (Auto) Lymph % (Auto) [place] % (Auto) Eos % (Auto) Baso % (Auto) Neut # (Auto) Lymph # (Auto) [place] # (Auto) Eos # (Auto) Baso # (Auto) PT INR Sodium Potassium Chloride Carbon Dioxide BUN Creatinine Estimated GFR BUN/Creatinine Ratio Glucose Lactate Calcium Total Bilirubin AST ALT Alkaline Phosphatase Troponin I NT-Pro-B Natriuret Pep Total Protein Albumin Globulin Albumin/Globulin Ratio Procalcitonin Urine RBC 0-1/hpf Urine WBC 0-1/hpf Urine Bacteria None seen SARS-CoV-2 (PCR) Influenza A (RT-PCR) Influenza B (RT-PCR) RSV (PCR) Assessment & Plan Assessment & Plan narrative: 1. Dyspnea on exertion -etiology not determined -patient with no fevers, cough, normal white count and procalcitonin seems less likely infectious -no wheezing, doubt this is asthma exacerbation -covid negative, despite recently ill -bnp normal, troponin negative -EKG showed right bundle branch block -observation for stress test and echo -ordered for aspirin and statin -noted to have elevated left hemidiaphraghm, if cardiac workup negative consider this as possible etiology -CT reviewed by me and defer to radiologist who noted ground glass opacities in left lung, unclear significant currently, but low threshold to start antibiotics -both mesalamine and IBD can cause pulmonary complications so consider this as possibility if workup is unrevealing 2. Asthma --continue montelukast, budesonide -ordered prn albuterol 3. BPH -continue finasteride, tamsulosin 4. Type 2 Diabetes -hold metformin -ordered insulin sliding scale 5. Ulcerative colitis -hold mesalamine for now I have discussed plan and obtained history from the patient. I have discussed plan of care with ED physician and bedside nurse. I have reviewed labs, ekg, chest and CT imaging. CODE: Full Proxy: Kaila Keller, spouse [facility] Meds 'Current medications' to include all prescriptions, [id number] products, herbals, cannabis/cannabidiol products, and vitamin/mineral/dietary (nutritional) supplements. I have utilized all available resources to obtain, update, or review the patient?s current medications. [If Yes, STOP here]: Yes
[2022-07-30] VITALS (7 sets, daily range): BP systolic 111–127; BP diastolic 69–79; PULSE 45–59; RESP 16–18; TEMP 36.4–36.6; O2SAT 95–98
[2022-07-30 06:38] LABS: Add Manual Diff / Slide Review NO; Basophils Absolute Auto 0 /uL (0-100); Basophils Percent Auto 0.6 % (0-2); Eosinophils Absolute Auto 400 /uL (0-450); Eosinophils Percent Auto 6.4 % (2-4); Hematocrit 39.8 % (41-53); Hemoglobin 13.8 g/dL (13.5-17.5); Lymphocytes Absolute Auto 1200 /uL (1100-4500); Lymphocytes Percent Auto 20.9 % (25-40); Mean Corpuscular HGB Conc 34.6 % (30-36); Mean Corpuscular Hemoglobin 32.9 PG (26-34); Monocytes Absolute Auto 500 /uL (0-900); Monocytes Percent Auto 8.3 % (3-14); Neutrophils Absolute Auto 3600 /uL (1500-7000); Neutrophils Percent Auto 63.8 % (50-75); Platelet Count 245 X10^3/uL (150-400); Red Blood Cell Count 4.19 X10^6/uL (4.5-5.9); Red Cell Distribution Width 12.5 % (11.6-14.8); White Blood Cell Count 5.7 X10^3/uL (4.5-11.0)
[2022-07-30 06:51] LABS: Alanine Aminotransferase 22 IU/L (<50); Albumin 3.9 g/dL (3.5-5.0); Albumin Globulin Ratio 1.6 (1.0-2.8); Alkaline Phosphatase 55 U/L (38-126); Aspartate Aminotransferase 22 IU/L (17-59); BUN Creatinine Ratio 25.8 (6-22); Bilirubin Total 1.1 mg/dL (0.2-1.3); Blood Urea Nitrogen 17 mg/dL (9-20); Calcium 9.1 mg/dL (8.4-10.2); Carbon Dioxide 25 mmol/L (22-32); Chloride 105 mmol/L (98-107); Cholesterol 158 mg/dL (140-199); Estimated Glomerular Filt Rate > 60 mL/min (>60); Globulin 2.5 g/dL (1.7-4.1); Glucose 116 mg/dL (80-110); HDL Cholesterol 82 mg/dL (40-60); HEMOLYSIS < 15 (0-50); LDL Cholesterol Calculated 52 mg/dL (<100); Magnesium 2.2 mg/dL (1.6-2.3); Potassium 4.1 mmol/L (3.4-5.1); Sodium 138 mmol/L (137-145); Total Protein 6.4 g/dL (6.3-8.2); Triglycerides 118 mg/dL (35-150)
[2022-07-30 06:59] LABS: Troponin I < 0.012 ng/mL (0.01-0.034)
[2022-07-30 07:22] LABS: TSH w/ Reflex to FT4 1.94 uIU/mL (0.47-4.68)
[2022-07-30] MEDS: ENOXAPARIN 40 MG/0.4 ML SYRINGE SUBCUT (08:59)
[2022-07-30] MEDS: BUDESONIDE 0.5 MG/2 ML NEB INH (10:08)
--- NOTE | 2022-07-30 12:09 | CM.DANOTE ---
DC Assessment: patient is a 71 yr old male who is here for shortness of breath and chest pain at rest. Patient is having chest pain work up pending ECHO and stress test. CM met with patient at the bedside who was A&O x4 during CM visit. Patient currently lives with his alma whitehead in [place] . and states he is Independent at his base line and drives. Per Dr. Santana patient is having and ECHO and stress test if those come back normal patient will be able to DC home today. PCP: Dr Shreya Mejia Insurance: [facility] and [facility] Plan: DC home when medically cleared no identified DC planning needs at this time CM team will continue to follow to help with any new DC planning needs that may arise. Emilie Reynolds RNgun tester Discharge Planning/Care Management Advanced directive, confirm from FAMILY Start: 07/29/22 19:09 Freq: Q24H Status: Active Protocol: Document 07/29/22 19:09 AKP (Rec: 07/29/22 19:09 AKP [id number]) Advance Directive, confirm on record Time 19:09 Person contacted to bring in Copy received No CM Discharge Assessment Start: 07/30/22 12:07 Freq: Status: Active Protocol: Document 07/30/22 12:07 HS (Rec: 07/30/22 12:09 HS [id number]) Discharge Planning Assessment Assigned Doctor Of Audiology Emilie Reynolds RNpharmacy operations manager Advance Directives? Yes Advance Directives on File No History Provided By Patient,Medical Record Prior Living Arrangements House Household Members spouse Type of transporation used prior to Drives own vehicle admit Independent with ADL's Yes Is patient alert and oriented? Yes Caregiver for Another No Barriers to Discharge No Discharge Plan Home Referrals Initiated None needed Medicare Choice List Provided No Whiteboard Updated in Patient Room with Yes name and ext. # of Doctor Of Audiology Review Status In Process Next Review Type Continued Stay Review
[2022-07-30] MEDS: MONTELUKAST 10 MG TABLET PO (14:06)
--- NOTE | 2022-07-30 14:08 | P.DS_ITS ---
History of Present Illness History of Present Illness Date Patient Seen: 07/30/22 Time Patient Seen: 14:08 Chief complaint: SOB/feeling like going to pass out T-4 Narrative: Per admitting provider, Mr. Keller is a 71M with PMH afib s/p ablation, COPD, DM, ulcerative colitis who presents to the hospital with shortness of breath. He had been in his normal state of health until a few days ago when he started feeling short of breath. His became ill and had positive covid test. He has tested himself at home and has never been positive for COVID. He notes no chest pain. No cough. No fevers/chills. He is active and has noted progressively worsening shortness of breath with exertion that improves with rest. He has no leg swelling. In the ED workup was done, vitals notable for afebrile, heart rate 70s, respiratory rate normal, blood pressure 150s/80s, 97% on room air. Labs reviewed and notable for WBC 7.2, hgb 14.3, plts 284. Na 137, creatinine 0.74. Trop negative. Lactate 1.0. BNP normal. Procal normal. COVID, flu, and RSV negative. Chest xray shows mild elevation of left hemidiaphragm. CTA chest shows left basilar ground glass opacities. EKG shows no acute ischemia. He was admitted for further treatment. Discharge Providers Provider Date of admission: 07/29/22 16:59 Discharge Date: 07/30/22 Primary care physician: Shreya Mejia MD Discharge provider: Nixon Santana DO Summary Hospital Course Discharge Diagnosis: 1. Dyspnea on exertion 2. Asthma 3. BPH 4. Type 2 Diabetes 5. Ulcerative colitis Hospital Course: 71 year old male with PMH of asthma, BPH, DM2, ulcerative colitits who presented with dyspnea on exertion. Etiology did not appear infectious, with negative COVID testing and no leukocytosis or fever. He was not wheezing so asthma exacerbation seemed less likely. EKG showed a RBBB but no acute ischemia. Troponins were negative. Stress testing was performed, as was a TTE which were both unremarkable. His imaging did show and elevated left hemidiaphragm, but given lack of hypoxia further workup is recommended with PCP to include PFTs and possible sniff testing to evaluate for possible diaphragmatic paralysis. He has planned follow up with his primary care office tomorrow. No medication changes are recommended at the time of discharge. Time Spent with Patient Time spent: Greater than 30 minutes Exam Vital Signs (past 8 hours): - 07/30/22 07:25 07/30/22 07:25 07/30/22 08:31 Temperature 97.5 F L Pulse Rate 59 L Respiratory Rate 18 Blood Pressure 127/79 Pulse Oximetry 98 96 Oxygen Delivery Method Room Air Room Air Oxygen Flow Rate 0 07/30/22 10:11 07/30/22 13:45 Temperature 97.7 F Pulse Rate 45 L Respiratory Rate 16 Blood Pressure 114/76 Pulse Oximetry 95 Oxygen Delivery Method Room Air Oxygen Flow Rate 0 Oxygen Delivery Method Room Air Oxygen Flow Rate 0 Narrative Exam Narrative: GEN: no acute distress HEENT: moist mucous membranes, PERRL NECK: trachea midline, no jvd PULM: clear bilaterally, no wheezes, rhonchi, rales CV: regular rate and rhythm, no murmurs ABD: soft, nontender, nondistended, no organomegaly, normal bowel sounds EXT: warm and well perfused with no edema NEURO: awake, alert, oriented, no focal deficits Objective Labs 07/30/22 06:09 07/30/22 06:09 Labs: Laboratory Results - last 24 hr 07/29/22 07/29/22 07/29/22 14:03 14:03 14:03 WBC 7.2 RBC 4.45 L Hgb 14.3 Hct 42.3 MCV 95.2 MCH 32.1 MCHC 33.7 RDW 12.9 Plt Count 284 Neut % (Auto) 65.0 Lymph % (Auto) 22.4 L [place] % (Auto) 8.1 Eos % (Auto) 4.0 Baso % (Auto) 0.5 Neut # (Auto) 4700 Lymph # (Auto) 1600 [place] # (Auto) 600 Eos # (Auto) 300 Baso # (Auto) 0 PT 11.3 INR 1.0 Sodium 137 Potassium 4.2 Chloride 103 Carbon Dioxide 27 BUN 19 Creatinine 0.74 Estimated GFR > 60 BUN/Creatinine Ratio 25.7 H Glucose 107 Hemoglobin A1c Lactate Calcium 9.9 Magnesium Total Bilirubin 1.1 AST 23 ALT 25 Alkaline Phosphatase 63 Troponin I < 0.012 NT-Pro-B Natriuret Pep 18 Total Protein 7.6 Albumin 4.5 Globulin 3.1 Albumin/Globulin Ratio 1.5 Triglycerides Cholesterol LDL Cholesterol, Calc HDL Cholesterol Procalcitonin TSH Urine RBC Urine WBC Urine Bacteria SARS-CoV-2 (PCR) Influenza A (RT-PCR) Influenza B (RT-PCR) RSV (PCR) 07/29/22 07/29/22 07/29/22 14:03 14:08 15:20 WBC RBC Hgb Hct MCV MCH MCHC RDW Plt Count Neut % (Auto) Lymph % (Auto) [place] % (Auto) Eos % (Auto) Baso % (Auto) Neut # (Auto) Lymph # (Auto) [place] # (Auto) Eos # (Auto) Baso # (Auto) PT INR Sodium Potassium Chloride Carbon Dioxide BUN Creatinine Estimated GFR BUN/Creatinine Ratio Glucose Hemoglobin A1c Lactate 1.0 Calcium Magnesium Total Bilirubin AST ALT Alkaline Phosphatase Troponin I NT-Pro-B Natriuret Pep Total Protein Albumin Globulin Albumin/Globulin Ratio Triglycerides Cholesterol LDL Cholesterol, Calc HDL Cholesterol Procalcitonin 0.06 TSH Urine RBC Urine WBC Urine Bacteria SARS-CoV-2 (PCR) Negative Influenza A (RT-PCR) Flu a negative Influenza B (RT-PCR) Flu b negative RSV (PCR) Negative 07/29/22 07/30/22 07/30/22 15:55 06:09 06:09 WBC 5.7 RBC 4.19 L Hgb 13.8 Hct 39.8 L MCV 95.0 MCH 32.9 MCHC 34.6 RDW 12.5 Plt Count 245 Neut % (Auto) 63.8 Lymph % (Auto) 20.9 L [place] % (Auto) 8.3 Eos % (Auto) 6.4 H Baso % (Auto) 0.6 Neut # (Auto) 3600 Lymph # (Auto) 1200 [place] # (Auto) 500 Eos # (Auto) 400 Baso # (Auto) 0 PT INR Sodium Potassium Chloride Carbon Dioxide BUN Creatinine Estimated GFR BUN/Creatinine Ratio Glucose Hemoglobin A1c Lactate Calcium Magnesium Total Bilirubin AST ALT Alkaline Phosphatase Troponin I < 0.012 NT-Pro-B Natriuret Pep Total Protein Albumin Globulin Albumin/Globulin Ratio Triglycerides Cholesterol LDL Cholesterol, Calc HDL Cholesterol Procalcitonin TSH Urine RBC 0-1/hpf Urine WBC 0-1/hpf Urine Bacteria None seen SARS-CoV-2 (PCR) Influenza A (RT-PCR) Influenza B (RT-PCR) RSV (PCR) 07/30/22 07/30/22 07/30/22 06:09 06:09 06:09 WBC RBC Hgb Hct MCV MCH MCHC RDW Plt Count Neut % (Auto) Lymph % (Auto) [place] % (Auto) Eos % (Auto) Baso % (Auto) Neut # (Auto) Lymph # (Auto) [place] # (Auto) Eos # (Auto) Baso # (Auto) PT INR Sodium 138 Potassium 4.1 Chloride 105 Carbon Dioxide 25 BUN 17 Creatinine 0.66 Estimated GFR > 60 BUN/Creatinine Ratio 25.8 H Glucose 116 H Hemoglobin A1c Cancelled Lactate Calcium 9.1 Magnesium 2.2 Total Bilirubin 1.1 AST 22 ALT 22 Alkaline Phosphatase 55 Troponin I NT-Pro-B Natriuret Pep Total Protein 6.4 Albumin 3.9 Globulin 2.5 Albumin/Globulin Ratio 1.6 Triglycerides 118 Cholesterol 158 LDL Cholesterol, Calc 52 HDL Cholesterol 82 H Procalcitonin TSH 1.94 Urine RBC Urine WBC Urine Bacteria SARS-CoV-2 (PCR) Influenza A (RT-PCR) Influenza B (RT-PCR) RSV (PCR) [facility] Medical History Skin tear Viral syndrome Social History household members: spouse Smoking Status: Former smoker alcohol intake: current Discharge Plan Discharge Plan Patient Disposition: Home Provider Discharge Comment: You were admitted to the hospital with shortness of breath on exertion, and underwent stress testing and echocardiogram which were unremarkable. No changes are recommended to your home medications. I do recommend pulmonary function testing with your PCP. Consider Sniff testing (video chest xrays) depending on results given mildly elevated diaphragm on initial chest xrays here. Discharge orders & Medications Prescriptions: Continued hydrocodone-acetaminophen 5-325 mg tablet 1 tab PO QID PRN (Reason: Pain (Scale Score 7-10)) budesonide 0.5 mg/2 mL suspension for nebulization 2 ml inhalation BID PRN (Reason: Sinus Symptoms) finasteride 5 mg tablet 5 mg PO DAILY metformin 500 mg tablet 500 mg PO BID tamsulosin 0.4 mg capsule 0.4 mg PO DAILY montelukast 10 mg tablet 10 mg PO DAILY rosuvastatin 10 mg tablet 10 mg PO DAILY Alvesco 160 mcg/actuation HFA aerosol inhaler 1 puff INHALATION DAILY mesalamine [Delzicol] 400 mg Capsule (With Del Rel Tablets) 400 mg PO BID Follow up/Referrals: Shreya Mejia MD [Primary Care Provider] - Diet/Activity/Treatments Diet: Diet as Tolerated Activity: As tolerated Visit Report/Discharge Packet Instructions: DI for Cardiac Stress Test, DI for Chest Pain Stand Alone Forms: Patient Portal/API, Stroke Signs & Symptoms Discharge Data Primary Care Provider: Shreya Mejia Attending Provider: Nixon Santana Admit Date/Time: 07/29/22 16:59 Discharges patient from system. Discharge Date/Time: 07/30/22 14:43
--- NOTE | 2022-07-30 15:40 | PC.NURSE ---
Discharge: Seen by Dr. Santana and given results of test and discharge instructions. Reviewed d/c packet. Questions answered. Pt d/c to home via auto with spouse.
[2022-07-31 04:59] LABS: Labcorp Hemoglobin (Hb) A1c 6.2 % (4.8-5.6)
== END 2022-07-30 14:43 | disposition home or self-care (01) ==
LOC: ED 16:57 → AC 16:59
PROVIDERS: Internal Medicine; Admitting Provider Internal Medicine; Emergency Provider Emergency Medicine; PCP Obstetrics & Gynecology Obstetrics; Referring Provider Emergency Medicine; Visit Provider Internal Medicine
DX: R06.02 Shortness of breath (principal); J45.909 Unspecified asthma, uncomplicated; E11.9 Type 2 diabetes mellitus without complications; Z79.84 Long term (current) use of oral hypoglycemic drugs; N40.0 Benign prostatic hyperplasia without lower urinary tract symptoms; K51.90 Ulcerative colitis, unspecified, without complications; Z20.822 Contact with and (suspected) exposure to COVID-19
CPT/HCPCS: 0241U; 36415; 71045; 71275; 78452; 80053; 80061; 81003; 81015; 82962; 83036; 83605; 83735; 83880; 84145; 84443; 84484; 85025; 85610; 87086; 93005; 93017; 93306; 94640; 96372; 99284; G0378; A9502; J1650; Q9967

== ENCOUNTER 2022-10-15 11:49 | Emergency (ER) | payer MEDICARE, OTHER, SELFPAY ==
[2022-07-29 19:02] VITALS: BMI 29.1
[2022-10-15] VITALS (28 sets, daily range): BP systolic 119–168; BP diastolic 63–87; PULSE 38–86; RESP 14–29; TEMP 36.2; O2SAT 93–99; BMI 28.3
--- NOTE | 2022-10-15 11:54 | ED_ITS ---
HPI - SOB/Dyspnea General Stated Complaint: SOB, lightheaded, sent from primary Time Seen by Provider: 10/15/22 11:50 History of Present Illness HPI Narrative: This is a 71-year-old male presents emergency department due to Related Data Home Medications Medication Instructions Recorded Confirmed budesonide 0.5 mg/2 mL suspension 2 ml inhalation BID PRN Sinus 06/25/19 07/29/22 for nebulization Symptoms finasteride 5 mg tablet 5 mg PO DAILY 06/25/19 07/29/22 hydrocodone 5 mg-acetaminophen 325 1 tab PO QID PRN Pain (Scale Score 06/25/19 07/29/22 mg tablet 7-10) ciclesonide 160 mcg/actuation 1 puff inhalation DAILY 08/01/20 07/29/22 aerosol inhaler (Alvesco) mesalamine 400 mg capsule (with 400 mg PO BID 08/01/20 07/29/22 delayed release tablets inside) (Delzicol) metformin 500 mg tablet 500 mg PO BID 08/01/20 07/29/22 montelukast 10 mg tablet 10 mg PO DAILY 08/01/20 07/29/22 rosuvastatin 10 mg tablet 10 mg PO DAILY 08/01/20 07/29/22 tamsulosin 0.4 mg capsule 0.4 mg PO DAILY 08/01/20 07/29/22 Allergies Allergy/AdvReac Type Severity Reaction Status Date / Time rivaroxaban [From XARELTO] Allergy Severe THOUGHT HE Verified 01/26/21 13:07 WAS HAVING A HEART ATTACK Review of Systems Review of Systems Narrative: GENERAL: Denies chills, fatigue, malaise, fever, sweats. HEENT: Denies sinus pain, ear pain, sore throat, difficulty swallowing, dizziness. RESPIRATORY: Denies dyspnea, cough, wheezing, hemoptysis, sputum. CARDIOVASCULAR: Denies chest pain, palpitations, orthopnea, edema, GASTROINTESTINAL: Denies nausea, vomiting, abdominal pain, diarrhea, constipation, melena. : Denies dysuria, frequency, incontinence, hematuria, urinary retention. MUSCULOSKELETAL: denies weakness, joint pain, or bony pain SKIN: Denies rash, skin lesions, or other NEUROLOGIC: Denies weakness, headache, numbness, change in speech, confusion, seizures, incoordination. PSYCHIATRIC: No concerning psychosocial issues. 12 point review of systems is negative except for those stated above Patient History Medical History Skin tear Viral syndrome Social History household members: spouse Smoking Status: Former smoker alcohol intake: current Smoking Status: Former smoker alcohol intake frequency: 0-2 drinks per day Substance Use Type: does not use Exam Narrative Exam Narrative: GENERAL: Well-developed patient, in mild distress. HEAD: Atraumatic. Normocephalic. EYES: Pupils equal round and reactive. Extraocular motions intact. No scleral icterus. No injection or drainage. ENT: Nose without bleeding, purulent drainage. Throat without erythema, tonsill ar hypertrophy or exudate. Airway patent. NECK: Trachea midline. Non tender CARDIOVASCULAR: Regular rate and rhythm without murmurs, gallops, or rubs. RESPIRATORY: Clear to auscultation. Breath sounds equal bilaterally. No wheezes, rales, or rhonchi. GASTROINTESTINAL: Abdomen soft, non-tender, nondistended. EXTREMITIES: No edema or joint tenderness. BACK: Nontender without deformity or crepitance. No flank tenderness. NEURO: AOx3. SKIN: No rash or erythema of visible areas MDM - SOB/Dyspnea MDM Narrative Medical decision making narrative: MDM * differential diagnosis includes but not limited to [ ] * Prior records reviewed: Patient was seen here 2 months ago due to shortness of breath and ?feeling like he was going to pass out?. History of hyperlipidemia, diabetes, asthma history AFib status post ablation, COPD. Chest x-ray unremarkable. CT angio negative but did show prominent left basilar ground- glass opacity questionable infection versus inflammation. Negative viral panel. No EKG changes. Normal troponins. Patient was admitted for chest pain observation. Stress testing and TTE you were unremarkable. Eventually discharged with instructions to follow up with primary care provider. * My lab interpretation: [ ] * My imgaing interpretation: [ ] * Clinical Decision Rules/Scores evaluated: None * Independent discussions with: None ED Course: [ ] Shared Decision Making: Discussed plan with patient who is comfortable with the plan. Social Considerations: None Disposition: Discharged to home Discharge Plan Departure Prescriptions: No Action hydrocodone-acetaminophen 5-325 mg tablet 1 tab PO QID PRN (Reason: Pain (Scale Score 7-10)) budesonide 0.5 mg/2 mL suspension for nebulization 2 ml inhalation BID PRN (Reason: Sinus Symptoms) finasteride 5 mg tablet 5 mg PO DAILY metformin 500 mg tablet 500 mg PO BID tamsulosin 0.4 mg capsule 0.4 mg PO DAILY montelukast 10 mg tablet 10 mg PO DAILY rosuvastatin 10 mg tablet 10 mg PO DAILY Alvesco 160 mcg/actuation HFA aerosol inhaler 1 puff INHALATION DAILY mesalamine [Delzicol] 400 mg Capsule (With Del Rel Tablets) 400 mg PO BID Referrals: Shreya Mejia MD [Primary Care Provider] -
--- NOTE | 2022-10-15 11:56 | DI.RAD.S_ITS ---
PROCEDURE: XR CHEST 1V INDICATIONS: chest pain TECHNIQUE: One view of the chest was acquired. COMPARISON: [facility], CR, XR CHEST 1V, 07/29/2022, 14:37. FINDINGS: Surgical changes and devices: None. Lungs and pleura: Mild eventration of the left hemidiaphragm. Streaky left basilar opacities slightly more pronounced than comparison study and is favored to represent atelectasis versus scarring. Mediastinum: Mediastinal contours appear normal. Heart size is normal. Bones and chest wall: No suspicious bony lesions. Overlying soft tissues appear unremarkable. IMPRESSION: Streaky left basilar opacities likely representing scarring and/or atelectasis. Otherwise, no acute cardiopulmonary abnormalities. Dictated by: Pacheco Branch M.D. on 10/15/2022 at 12:40 Approved by: Pacheco Branch M.D. on 10/15/2022 at 12:42
[2022-10-15 12:05] LABS: Add Manual Diff / Slide Review NO; Basophils Absolute Auto 100 /uL (0-100); Basophils Percent Auto 1.3 % (0-2); Eosinophils Absolute Auto 200 /uL (0-450); Eosinophils Percent Auto 3.3 % (2-4); Hematocrit 40.6 % (41-53); Hemoglobin 14.1 g/dL (13.5-17.5); Lymphocytes Absolute Auto 1700 /uL (1100-4500); Lymphocytes Percent Auto 23.7 % (25-40); Mean Corpuscular HGB Conc 34.6 % (30-36); Mean Corpuscular Hemoglobin 32.7 PG (26-34); Mean Corpuscular Volume 94.5 fL (80-100); Monocytes Absolute Auto 500 /uL (0-900); Monocytes Percent Auto 7.2 % (3-14); Neutrophils Absolute Auto 4700 /uL (1500-7000); Neutrophils Percent Auto 64.5 % (50-75); Platelet Count 268 X10^3/uL (150-400); Red Cell Distribution Width 12.8 % (11.6-14.8); White Blood Cell Count 7.3 X10^3/uL (4.5-11.0)
[2022-10-15 12:14] LABS: Prothrombin Time 11.2 SECONDS (10.1-12.7)
[2022-10-15 12:17] LABS: PTT Partial Thromboplastin Tim 27 SECONDS (26-36)
[2022-10-15 12:21] LABS: Alanine Aminotransferase 27 IU/L (<50); Albumin 4.5 g/dL (3.5-5.0); Albumin Globulin Ratio 1.7 (1.0-2.8); Alkaline Phosphatase 54 U/L (38-126); Aspartate Aminotransferase 23 IU/L (17-59); BUN Creatinine Ratio 22.5 (6-22); Bilirubin Total 0.8 mg/dL (0.2-1.3); Blood Urea Nitrogen 16 mg/dL (9-20); Calcium 9.7 mg/dL (8.4-10.2); Carbon Dioxide 29 mmol/L (22-32); Chloride 104 mmol/L (98-107); Creatine Kinase 42 U/L (55-170); Estimated Glomerular Filt Rate > 60 mL/min (>60); Globulin 2.6 g/dL (1.7-4.1); Glucose 130 mg/dL (80-110); HEMOLYSIS < 15 (0-50); Lipase 96 U/L (23-300); Magnesium 2.3 mg/dL (1.6-2.3); Potassium 4.3 mmol/L (3.4-5.1); Sodium 139 mmol/L (137-145); Total Protein 7.1 g/dL (6.3-8.2)
--- NOTE | 2022-10-15 12:28 | PC.NURSE ---
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 Checked on pt and he stated he felt dizzy. BP chesked and was unreamarkable. Dr Brown. updated.
[2022-10-15 12:32] LABS: Troponin I < 0.012 ng/mL (0.01-0.034)
--- NOTE | 2022-10-15 12:43 | ED_ITS ---
HPI - Dizziness General Chief Complaint: Dizziness Stated Complaint: SOB, lightheaded, sent from primary Time Seen by Provider: 10/15/22 11:50 Source: patient Mode of arrival: Ambulatory History of Present Illness HPI Narrative: 71-year-old male nonsmoker with history hyperlipidemia, diabetes, asthma, previous AFib (ablation in 2009) presents with a chief complaint of dizziness, most notable a few minutes after being upright for least the past few days. He admits that this is quite similar to when he was admitted a few months ago and had no significant findings after the hospitalization which included a stress test and an echo. He is otherwise well and free of complaint. He denies any chest pain or shortness of breath. He is had no nausea, vomiting or diarrhea. He denies any dietary change. He states that in the aftermath of the prior hospitalization he was referred to ENT for evaluation of his dizziness. He was found to have nasal polyps and placed on steroids which improved his dizziness for the short term. Related Data Home Medications Medication Instructions Recorded Confirmed budesonide 0.5 mg/2 mL suspension 2 ml inhalation BID PRN Sinus 06/25/19 10/15/22 for nebulization Symptoms finasteride 5 mg tablet 5 mg PO DAILY 06/25/19 10/15/22 hydrocodone 5 mg-acetaminophen 325 1 tab PO NOW PRN Pain (Scale Score 06/25/19 10/15/22 mg tablet 4-6) ciclesonide 160 mcg/actuation 1 puff inhalation DAILY 08/01/20 10/15/22 aerosol inhaler (Alvesco) mesalamine 400 mg capsule (with 400 mg PO BID 08/01/20 10/15/22 delayed release tablets inside) (Delzicol) metformin 500 mg tablet 500 mg PO BID 08/01/20 10/15/22 montelukast 10 mg tablet 10 mg PO DAILY 08/01/20 10/15/22 rosuvastatin 10 mg tablet 10 mg PO DAILY 08/01/20 10/15/22 tamsulosin 0.4 mg capsule 0.4 mg PO DAILY 08/01/20 10/15/22 Allergies Allergy/AdvReac Type Severity Reaction Status Date / Time rivaroxaban [From XARELTO] Allergy Severe THOUGHT HE Verified 10/15/22 12:00 WAS HAVING A HEART ATTACK Review of Systems Review of Systems Narrative: GENERAL: Denies chills, fatigue, malaise, fever, sweats. HEENT: See HPI RESPIRATORY: Denies dyspnea, cough, wheezing, hemoptysis, sputum. CARDIOVASCULAR: See HPI GASTROINTESTINAL: Denies nausea, vomiting, abdominal pain, diarrhea, constipation, melena. : Denies dysuria, frequency, incontinence, hematuria, urinary retention. MUSCULOSKELETAL: denies weakness, joint pain, or bony pain SKIN: Denies rash, skin lesions, or other NEUROLOGIC: Denies weakness, headache, numbness, change in speech, confusion, seizures, incoordination. PSYCHIATRIC: No concerning psychosocial issues. 12 point review of systems is negative except for those stated above Patient History Medical History Skin tear Viral syndrome Social History household members: spouse Smoking Status: Former smoker alcohol intake: current Smoking Status: Former smoker alcohol intake frequency: 0-2 drinks per day Substance Use Type: does not use Exam Narrative Exam Narrative: GENERAL: [71] year old patient appears stated age. Well-developed patient, in mild distress. HEAD: Atraumatic. Normocephalic. EYES: Pupils equal round and reactive. Extraocular motions intact. No scleral icterus. No injection or drainage. ENT: Nose without bleeding, purulent drainage. Throat without erythema, tonsillar hypertrophy or exudate. Airway patent. NECK: Trachea midline. Non tender CARDIOVASCULAR: Regular rate and rhythm without murmurs, gallops, or rubs. RESPIRATORY: Clear to auscultation. Breath sounds equal bilaterally. No wheezes, rales, or rhonchi. GASTROINTESTINAL: Abdomen soft, non-tender, nondistended. EXTREMITIES: No edema or joint tenderness. BACK: Nontender without deformity or crepitance. No flank tenderness. NEURO: AOx3. SKIN: No rash or erythema of visible areas Initial Vital Signs Initial Vital Signs: Vital Signs Temperature 97.1 F L 10/15/22 11:50 Pulse Rate 65 10/15/22 11:50 Respiratory Rate 14 10/15/22 11:50 Blood Pressure 168/87 H 10/15/22 11:50 Pulse Oximetry 99 10/15/22 11:50 Oxygen Delivery Method Room Air 10/15/22 11:50 Course Orders Ordered: ED Orders 10/15/22 11:55 Complete Blood Count AUTO DIFF Stat Comprehensive Metabolic Panel Stat Lipase Stat Magnesium Stat PTT Partial Thromboplastin Javier Stat Prothrombin Time INR Stat Troponin & CK Cardiac Panel Stat 10/15/22 11:56 XR chest 1V Stat EKG-12 Lead Stat 10/15/22 13:29 EKG-12 Lead Routine 10/15/22 13:32 EKG-12 Lead Stat Reevaluation(s) Reevaluation #1: Patient had 2 minute episode of bradycardia into the 30s caught on monitor, by the time EKG obtained he was back in his normal sinus rhythm. Reevaluation #2: During repeat examination patient elevated from lying to seated position and about 2 minutes later he began feeling dizzy and soon thereafter became bradycardic. This time EKG was obtained and able to catch which notes a 2-1 AV block Consultations Consultation #1: Discuss[address] with Dr. Landry (cardiology at [facility]). He states patient will require pacemaker and recommends transfer to [facility] with consultation with Dr. Dodson (electrophysiology) Consultation #2: Dr. Dodson agrees with diagnosis and plan. Recommends discussion with hospitalist Consultation #3: Dr. Garcia (hospitalist) accepts in transfer Vital Signs Vital signs: Vital Signs - 8 hr 10/15/22 11:50 10/15/22 12:27 10/15/22 12:27 Temperature 97.1 F L Pulse Rate 65 64 Pulse Rate [Orthostatic Lying] 65 Pulse Rate [Orthostatic Sitting] 69 Pulse Rate [Orthostatic Standing] 73 Respiratory Rate 14 18 Blood Pressure 168/87 H 134/72 Blood Pressure [Orthostatic Lying] 139/72 Blood Pressure [Orthostatic Sitting] 143/79 H Blood Pressure [Orthostatic Standing] 143/83 H Pulse Oximetry 99 98 Oxygen Delivery Method Room Air Room Air 10/15/22 12:27 10/15/22 12:30 10/15/22 12:30 Temperature Pulse Rate 66 64 Pulse Rate [Orthostatic Lying] Pulse Rate [Orthostatic Sitting] Pulse Rate [Orthostatic Standing] Respiratory Rate 20 20 Blood Pressure 123/73 Blood Pressure [Orthostatic Lying] Blood Pressure [Orthostatic Sitting] Blood Pressure [Orthostatic Standing] Pulse Oximetry 96 95 Oxygen Delivery Method 10/15/22 12:45 10/15/22 12:58 10/15/22 12:58 Temperature Pulse Rate 65 63 Pulse Rate [Orthostatic Lying] Pulse Rate [Orthostatic Sitting] Pulse Rate [Orthostatic Standing] Respiratory Rate 19 17 Blood Pressure 125/74 Blood Pressure [Orthostatic Lying] Blood Pressure [Orthostatic Sitting] Blood Pressure [Orthostatic Standing] Pulse Oximetry 93 97 Oxygen Delivery Method Room Air 10/15/22 13:00 10/15/22 13:00 10/15/22 13:15 Temperature Pulse Rate 61 39 L Pulse Rate [Orthostatic Lying] Pulse Rate [Orthostatic Sitting] Pulse Rate [Orthostatic Standing] Respiratory Rate 20 24 Blood Pressure 131/77 Blood Pressure [Orthostatic Lying] Blood Pressure [Orthostatic Sitting] Blood Pressure [Orthostatic Standing] Pulse Oximetry 96 96 Oxygen Delivery Method 10/15/22 13:30 10/15/22 13:30 10/15/22 13:45 Temperature Pulse Rate 38 L 68 Pulse Rate [Orthostatic Lying] Pulse Rate [Orthostatic Sitting] Pulse Rate [Orthostatic Standing] Respiratory Rate 24 23 Blood Pressure 142/77 H Blood Pressure [Orthostatic Lying] Blood Pressure [Orthostatic Sitting] Blood Pressure [Orthostatic Standing] Pulse Oximetry 97 96 Oxygen Delivery Method Room Air 10/15/22 14:00 10/15/22 14:00 10/15/22 14:07 Temperature Pulse Rate 67 63 Pulse Rate [Orthostatic Lying] Pulse Rate [Orthostatic Sitting] Pulse Rate [Orthostatic Standing] Respiratory Rate 20 20 Blood Pressure 134/78 Blood Pressure [Orthostatic Lying] Blood Pressure [Orthostatic Sitting] Blood Pressure [Orthostatic Standing] Pulse Oximetry 96 96 Oxygen Delivery Method 10/15/22 14:07 10/15/22 14:15 10/15/22 14:15 Temperature Pulse Rate 63 Pulse Rate [Orthostatic Lying] Pulse Rate [Orthostatic Sitting] Pulse Rate [Orthostatic Standing] Respiratory Rate 19 Blood Pressure 123/76 151/77 H Blood Pressure [Orthostatic Lying] Blood Pressure [Orthostatic Sitting] Blood Pressure [Orthostatic Standing] Pulse Oximetry 98 Oxygen Delivery Method 10/15/22 14:30 10/15/22 14:30 10/15/22 14:45 Temperature Pulse Rate 66 68 Pulse Rate [Orthostatic Lying] Pulse Rate [Orthostatic Sitting] Pulse Rate [Orthostatic Standing] Respiratory Rate 21 22 Blood Pressure 135/68 Blood Pressure [Orthostatic Lying] Blood Pressure [Orthostatic Sitting] Blood Pressure [Orthostatic Standing] Pulse Oximetry 96 95 Oxygen Delivery Method 10/15/22 14:46 10/15/22 14:46 10/15/22 15:00 Temperature Pulse Rate 68 Pulse Rate [Orthostatic Lying] Pulse Rate [Orthostatic Sitting] Pulse Rate [Orthostatic Standing] Respiratory Rate 23 Blood Pressure 123/73 127/77 Blood Pressure [Orthostatic Lying] Blood Pressure [Orthostatic Sitting] Blood Pressure [Orthostatic Standing] Pulse Oximetry 94 Oxygen Delivery Method 10/15/22 15:00 10/15/22 15:15 10/15/22 15:15 Temperature Pulse Rate 67 65 Pulse Rate [Orthostatic Lying] Pulse Rate [Orthostatic Sitting] Pulse Rate [Orthostatic Standing] Respiratory Rate 25 H 19 Blood Pressure 123/76 Blood Pressure [Orthostatic Lying] Blood Pressure [Orthostatic Sitting] Blood Pressure [Orthostatic Standing] Pulse Oximetry 96 96 Oxygen Delivery Method 10/15/22 15:30 10/15/22 15:30 10/15/22 15:45 Temperature Pulse Rate 67 54 L Pulse Rate [Orthostatic Lying] Pulse Rate [Orthostatic Sitting] Pulse Rate [Orthostatic Standing] Respiratory Rate 24 24 Blood Pressure 131/80 Blood Pressure [Orthostatic Lying] Blood Pressure [Orthostatic Sitting] Blood Pressure [Orthostatic Standing] Pulse Oximetry 96 96 Oxygen Delivery Method 10/15/22 15:46 10/15/22 16:26 10/15/22 16:30 Temperature Pulse Rate 71 41 L Pulse Rate [Orthostatic Lying] Pulse Rate [Orthostatic Sitting] Pulse Rate [Orthostatic Standing] Respiratory Rate 29 H 25 H Blood Pressure 119/63 Blood Pressure [Orthostatic Lying] Blood Pressure [Orthostatic Sitting] Blood Pressure [Orthostatic Standing] Pulse Oximetry Oxygen Delivery Method 10/15/22 16:45 10/15/22 17:00 10/15/22 17:15 Temperature Pulse Rate 40 L 55 L 82 Pulse Rate [Orthostatic Lying] Pulse Rate [Orthostatic Sitting] Pulse Rate [Orthostatic Standing] Respiratory Rate 25 H 26 H 23 Blood Pressure Blood Pressure [Orthostatic Lying] Blood Pressure [Orthostatic Sitting] Blood Pressure [Orthostatic Standing] Pulse Oximetry Oxygen Delivery Method 10/15/22 17:30 10/15/22 17:45 10/15/22 18:00 Temperature Pulse Rate 84 84 86 Pulse Rate [Orthostatic Lying] Pulse Rate [Orthostatic Sitting] Pulse Rate [Orthostatic Standing] Respiratory Rate 24 24 26 H Blood Pressure Blood Pressure [Orthostatic Lying] Blood Pressure [Orthostatic Sitting] Blood Pressure [Orthostatic Standing] Pulse Oximetry Oxygen Delivery Method MDM - Dizziness Lab Data 10/15/22 11:55 10/15/22 11:55 Labs: Lab Results 10/15/22 10/15/22 10/15/22 Range/Units 11:55 11:55 11:55 WBC 7.3 (4.5-11.0) X10^3/uL RBC 4.30 L (4.5-5.9) X10^6/uL Hgb 14.1 (13.5-17.5) g/dL Hct 40.6 L (41-53) % MCV 94.5 (80-100) fL MCH 32.7 (26-34) PG MCHC 34.6 (30-36) % RDW 12.8 (11.6-14.8) % Plt Count 268 (150-400) X10^3/uL Neut % (Auto) 64.5 (50-75) % Lymph % (Auto) 23.7 L (25-40) % [place] % (Auto) 7.2 (3-14) % Eos % (Auto) 3.3 (2-4) % Baso % (Auto) 1.3 (0-2) % Neut # (Auto) 4700 (0783-5358) /uL Lymph # (Auto) 1700 (7236-9408) /uL [place] # (Auto) 500 (0-900) /uL Eos # (Auto) 200 (0-450) /uL Baso # (Auto) 100 (0-100) /uL PT 11.2 (10.1-12.7) SECONDS INR 1.0 (0.9-1.3) APTT 27 (26-36) SECONDS Sodium 139 (137-145) mmol/L Potassium 4.3 (3.4-5.1) mmol/L Chloride 104 (98-107) mmol/L Carbon Dioxide 29 (22-32) mmol/L BUN 16 (9-20) mg/dL Creatinine 0.71 (0.66-1.25) mg/dL Estimated GFR > 60 (>60) mL/min BUN/Creatinine Ratio 22.5 H (6-22) Glucose 130 H (80-110) mg/dL Calcium 9.7 (8.4-10.2) mg/dL Magnesium 2.3 (1.6-2.3) mg/dL Total Bilirubin 0.8 (0.2-1.3) mg/dL AST 23 (17-59) IU/L ALT 27 (<50) IU/L Alkaline Phosphatase 54 (38-126) U/L Total Creatine Kinase 42 L (55-170) U/L CK-MB (CK-2) TNP CK-MB (CK-2) Rel Index TNP Troponin I < 0.012 (0.01-0.034) ng/mL Total Protein 7.1 (6.3-8.2) g/dL Albumin 4.5 (3.5-5.0) g/dL Globulin 2.6 (1.7-4.1) g/dL Albumin/Globulin Ratio 1.7 (1.0-2.8) Lipase 96 (23-300) U/L Urine Dip Bedside Urine Glucose Negative Bedside Urine Bilirubin - Negative Bedside Urine Ketone - Negative Urine Specific [place] 1.005 Bedside Urine Occult Blood - Negative Bedside Urine pH 8.0 Bedside Urine Protein - Negative Bedside Urine Urobilinogen - Negative Bedside Urine Nitrite - Negative Bedside Urine Leukocytes - Negative Esterase MDM Narrative Medical decision making narrative: [71] year old patient presents with dizziness Multiple etiologies for patient's symptoms considered including, but not limited to: [Dehydration versus electrolyte abnormality vs. Arrhythmia versus other] Prior Charts reviewed in our EMR Primary Historian: patient Labs reviewed and interpreted by myself: no significant abnormalities Imaging reviewed:CXR clear Consultations: Frantz (general cardio) Ivory (EP) Jose (hospitalist) see details above Patient's symptoms improved over duration of stay with above-stated therapies. Critical Care Time Critical Care Time Critical Care Time: Yes Total Critical Care Time: 45 Attestation: The high probability of a clinically significant, sudden or life threatening deterioration of the [CV] system(s) required my full and direct attention, intervention and personal management. The aggregate critical care time was [45] minutes. This time is in addition to time spent performing reported procedures but includes the following: [x] Data Review and interpretation [x] Patient assessment and monitoring of vital signs [x] Documentation [x] Medication orders and management Discharge Plan Departure Patient Disposition: [facility] Clinical Impression: AV block Prescriptions: No Action hydrocodone-acetaminophen 5-325 mg tablet 1 tab PO NOW PRN (Reason: Pain (Scale Score 4-6)) budesonide 0.5 mg/2 mL suspension for nebulization 2 ml inhalation BID PRN (Reason: Sinus Symptoms) finasteride 5 mg tablet 5 mg PO DAILY Rx Instructions: at night metformin 500 mg tablet 500 mg PO BID tamsulosin 0.4 mg capsule 0.4 mg PO DAILY Rx Instructions: at night montelukast 10 mg tablet 10 mg PO DAILY Rx Instructions: at night rosuvastatin 10 mg tablet 10 mg PO DAILY Rx Instructions: at night Alvesco 160 mcg/actuation HFA aerosol inhaler 1 puff INHALATION DAILY mesalamine [Delzicol] 400 mg Capsule (With Del Rel Tablets) 400 mg PO BID Referrals: Shreya Mejia MD [Primary Care Provider] -
--- NOTE | 2022-10-15 16:15 | PC.NURSE ---
VS do not reflect pt heart rate dropping to 38. charge nurse and provider are aware. EKG obtained during one of these episodes. these episodes do seem to correlate the patient feeling dizzy. heart rate dropping is usually induced with patient sitting upright or standing and does return to 68bpm
--- NOTE | 2022-10-15 18:11 | PC.NURSE ---
HOSPICE COORDINATOR Note: Scheduled transport for pt going to [facility]. Dr. Garcia is the accepting doc and will be going to room . Called and spoke with Rashmi, the fun house attendant, and gave ETA of transport.
== END 2022-10-15 18:45 | disposition short-term general hospital (02) ==
PROVIDERS: Emergency Provider Emergency Medicine; PCP Obstetrics & Gynecology Obstetrics
DX: I44.30 Unspecified atrioventricular block (principal); R00.1 Bradycardia, unspecified; R07.9 Chest pain, unspecified; R79.89 Other specified abnormal findings of blood chemistry
CPT/HCPCS: 36415; 71045; 80053; 81003; 82550; 83690; 83735; 84484; 85025; 85610; 85730; 93005; 99284; 99291

== ENCOUNTER → 2022-11-03 06:59 | Outpatient (CLI) | payer MEDICARE, OTHER, SELFPAY ==
[2022-07-29 19:02] VITALS: BMI 29.1
[2022-11-03 08:00] LABS: Add Manual Diff / Slide Review NO; Basophils Absolute Auto 100 /uL (0-100); Basophils Percent Auto 0.7 % (0-2); Eosinophils Absolute Auto 100 /uL (0-450); Eosinophils Percent Auto 1.7 % (2-4); Hematocrit 36.9 % (41-53); Hemoglobin 12.9 g/dL (13.5-17.5); Lymphocytes Absolute Auto 2100 /uL (1100-4500); Lymphocytes Percent Auto 26.5 % (25-40); Mean Corpuscular HGB Conc 34.9 % (30-36); Mean Corpuscular Hemoglobin 32.9 PG (26-34); Mean Corpuscular Volume 94.4 fL (80-100); Monocytes Absolute Auto 700 /uL (0-900); Monocytes Percent Auto 8.5 % (3-14); Neutrophils Absolute Auto 5000 /uL (1500-7000); Neutrophils Percent Auto 62.6 % (50-75); Platelet Count 246 X10^3/uL (150-400); Red Blood Cell Count 3.91 X10^6/uL (4.5-5.9); Red Cell Distribution Width 12.8 % (11.6-14.8); White Blood Cell Count 7.9 X10^3/uL (4.5-11.0)
[2022-11-03 08:22] LABS: Alanine Aminotransferase 22 IU/L (<50); Albumin 3.9 g/dL (3.5-5.0); Albumin Globulin Ratio 1.6 (1.0-2.8); Alkaline Phosphatase 58 U/L (38-126); Aspartate Aminotransferase 18 IU/L (17-59); BUN Creatinine Ratio 31.2 (6-22); Blood Urea Nitrogen 24 mg/dL (9-20); Calcium 9.6 mg/dL (8.4-10.2); Carbon Dioxide 30 mmol/L (22-32); Chloride 102 mmol/L (98-107); Cholesterol 170 mg/dL (140-199); Estimated Glomerular Filt Rate > 60 mL/min (>60); Globulin 2.5 g/dL (1.7-4.1); Glucose 86 mg/dL (80-110); HDL Cholesterol 96 mg/dL (40-60); HEMOLYSIS < 15 (0-50); LDL Cholesterol Calculated 62 mg/dL (<100); Potassium 3.7 mmol/L (3.4-5.1); Sodium 137 mmol/L (137-145); Total Protein 6.4 g/dL (6.3-8.2); Triglycerides 62 mg/dL (35-150)
[2022-11-04 07:09] LABS: x Labcorp Estim. Avg Glu (eAG) 137 mg/dL (.); x Labcorp Hemoglobin A1c 6.4 % (4.8-5.6)
[2022-11-05 13:43] LABS: Immunoglobulin E 34 IU/mL (6-495)
== END ==
PROVIDERS: PCP Obstetrics & Gynecology Obstetrics; Visit Provider Obstetrics & Gynecology Obstetrics
DX: E11.9 Type 2 diabetes mellitus without complications (principal); E78.5 Hyperlipidemia, unspecified; J45.51 Severe persistent asthma with (acute) exacerbation
CPT/HCPCS: 36415; 80053; 80061; 82785; 83036; 85025

== ENCOUNTER → 2023-01-11 09:51 | Outpatient (CLI) | payer MEDICARE, OTHER, SELFPAY ==
[2022-07-29 19:02] VITALS: BMI 29.1
--- NOTE | 2023-01-11 09:52 | DI.CT.S_ITS ---
PROCEDURE: CT SINUS SCREEN WO CON INDICATIONS: Chronic pansinusitis TECHNIQUE: Noncontrast 3.0 mm axial images acquired from the frontal sinuses to the mid-sella, with coronal and sagittal reformats. For radiation dose reduction, the following was used: automated exposure control, adjustment of mA and/or kV according to patient size. COMPARISON: None. FINDINGS: Image quality: Excellent. Maxillary Sinuses: Chronic mucoperiosteal thickening of the bilateral maxillary sinuses. Right maxillary sinus retention cyst. Ethmoid Air Cells: Bilateral ethmoidectomy. Moderate mucosal thickening in the ethmoidectomy bed.. Sphenoid Sinuses: No bony remodeling or destruction. Sinuses are clear. Frontal Sinuses: No bony remodeling or destruction. Mild bilateral frontal sinus mucosal thickening. Ostiomeatal Complexes: Bilateral antrectomy has been performed.. Miscellaneous: Visualized intra-orbital contents are normal. No zachary bullosa or paradoxical turbinate curvature. No nasal septal deviation. IMPRESSION: 1. Postsurgical sequelae. 2. Camacho sinus mucosal disease. Dictated by: Cory Sampson M.D. on 01/11/2023 at 10:27 Approved by: Cory Sampson M.D. on 01/11/2023 at 10:28
== END ==
PROVIDERS: PCP Obstetrics & Gynecology Obstetrics
DX: J32.4 Chronic pansinusitis (principal); J33.9 Nasal polyp, unspecified; Z98.890 Other specified postprocedural states
CPT/HCPCS: 70486

== ENCOUNTER → 2023-02-06 06:58 | Outpatient (CLI) | payer MEDICARE, OTHER, SELFPAY ==
[2022-07-29 19:02] VITALS: BMI 29.1
[2023-02-06 07:48] LABS: Hemoglobin A1C% w Est Avg Glu 6.4 % (4.0-6.0)
[2023-02-06 08:14] LABS: Alanine Aminotransferase 27 IU/L (<50); Albumin 4.3 g/dL (3.5-5.0); Albumin Globulin Ratio 1.7 (1.0-2.8); Alkaline Phosphatase 59 U/L (38-126); Aspartate Aminotransferase 26 IU/L (17-59); BUN Creatinine Ratio 24.3 (6-22); Bilirubin Total 1.1 mg/dL (0.2-1.3); Blood Urea Nitrogen 18 mg/dL (9-20); Calcium 9.6 mg/dL (8.4-10.2); Carbon Dioxide 29 mmol/L (22-32); Chloride 102 mmol/L (98-107); Estimated Glomerular Filt Rate > 60 mL/min (>60); Globulin 2.6 g/dL (1.7-4.1); Glucose 131 mg/dL (80-110); HEMOLYSIS < 15 (0-50); Potassium 4.4 mmol/L (3.4-5.1); Sodium 137 mmol/L (137-145); Total Protein 6.9 g/dL (6.3-8.2)
[2023-02-08 03:38] LABS: Cholesterol HDL Ratio 1.8 ratio (0.0-5.0); Cholesterol,Total 166 mg/dL (100-199); HDL Cholesterol 90 mg/dL (>39); LDL Cholesterol Cal 61 mg/dL (0-99); Triglycerides 84 mg/dL (0-149); VLDL Cholesterol Cal 15 mg/dL (5-40)
== END ==
PROVIDERS: PCP Obstetrics & Gynecology Obstetrics; Referring Provider Obstetrics & Gynecology Obstetrics; Visit Provider Obstetrics & Gynecology Obstetrics
DX: E11.9 Type 2 diabetes mellitus without complications (principal); E78.5 Hyperlipidemia, unspecified; R42 Dizziness and giddiness
CPT/HCPCS: 36415; 80053; 80061; 83036

== ENCOUNTER → 2023-04-28 07:02 | Outpatient (CLI) | payer MEDICARE, SELFPAY ==
[2022-07-29 19:02] VITALS: BMI 29.1
[2023-04-28 08:16] LABS: Hemoglobin A1C% w Est Avg Glu 6.5 % (4.0-6.0)
[2023-04-28 08:27] LABS: Alanine Aminotransferase 25 IU/L (<50); Albumin 4.2 g/dL (3.5-5.0); Albumin Globulin Ratio 1.8 (1.0-2.8); Alkaline Phosphatase 61 U/L (38-126); Bilirubin Total 0.9 mg/dL (0.2-1.3); Blood Urea Nitrogen 18 mg/dL (9-20); Calcium 9.7 mg/dL (8.4-10.2); Carbon Dioxide 29 mmol/L (22-32); Chloride 103 mmol/L (98-107); Cholesterol 157 mg/dL (140-199); Estimated Glomerular Filt Rate > 60 mL/min (>60); Globulin 2.3 g/dL (1.7-4.1); Glucose 137 mg/dL (80-110); HDL Cholesterol 85 mg/dL (40-60); HEMOLYSIS < 15 (0-50); LDL Cholesterol Calculated 58 mg/dL (<100); Potassium 4.1 mmol/L (3.4-5.1); Sodium 136 mmol/L (137-145); Total Protein 6.5 g/dL (6.3-8.2); Triglycerides 71 mg/dL (35-150)
[2023-05-01 14:51] LABS: Aspartate Aminotransferase 25 IU/L (17-59)
== END ==
PROVIDERS: PCP Obstetrics & Gynecology Obstetrics; Referring Provider Obstetrics & Gynecology Obstetrics; Visit Provider Obstetrics & Gynecology Obstetrics
DX: E11.9 Type 2 diabetes mellitus without complications (principal); E78.5 Hyperlipidemia, unspecified
CPT/HCPCS: 36415; 80053; 80061; 83036

== ENCOUNTER 2023-05-20 09:41 | Day surgery (SDC) | payer MEDICARE, SELFPAY ==
[2022-07-29 19:02] VITALS: BMI 29.1
--- NOTE | 2023-05-20 | PATH_ITS ---
[facility] Accession Number: [id number] No. of containers..03 Tissue . 01 Material submitted: . PART A: colon - RIGHT COLON PART B: colon - TRANSVERSE COLON PART C: colon - LEFT COLON . 01 Diagnosis: A-C. Right, Transverse, Left Colon, Biopsies: Colonic mucosa with no significant diagnostic abnormality. Negative for active inflammation, granulomas, dysplasia, and malignancy. . MRV 05/25/2023 1348 Local . 01 Electronically signed: . Matt Joe MD, PhD, Pathologist NPI- [id number] . 01 Gross description: . Part A: RIGHT COLON: Received in formalin are 2 fragment(s) of peters, soft tissue measuring 0.1 x 0.1 x 0.1 cm to 0.2 x 0.2 x 0.2 cm submitted entirely in 1 cassette(s) Part B: TRANSVERSE COLON: Received in formalin are multiple fragment(s) of peters, soft tissue measuring 0.2 x 0.2 x 0.2 cm to 0.4 x 0.4 x 0.2 cm submitted entirely in 1 cassette(s) Part C: LEFT COLON: Received in formalin are multiple fragment(s) of peters, soft tissue measuring 0.1 x 0.1 x 0.1 cm to 0.4 x 0.4 x 0.2 cm submitted entirely in 1 cassette(s) /VELASQUEZ 05/21/20232011 Local . 01 Pathologist provided ICD-10: K51.00 . 01 CPT . 014414, 293405, [id number] Specimen Comment: A courtesy copy of this report has been sent to [phone] Performed at: [facility] [address] [id number] MD Salvador Peterson MD Phone: [phone]
[2023-05-20 10:28] VITALS: BP 144/84; PULSE 67; RESP 17; TEMP 35.7; O2SAT 99
[2023-05-20] MEDS: LACTATED RINGERS 1,000 ML 42 ML IV (10:47)
--- NOTE | 2023-05-20 10:51 | P.HP_ITS ---
History of Present Illness History of Present Illness Date Patient Seen: 05/20/23 Chief complaint: Colonoscopy Narrative: History of ulcerative colitis last colonoscopy just over 2 years ago [facility] Medical History Skin tear Viral syndrome Social History household members: spouse Smoking Status: Former smoker alcohol intake: current Meds Home Medications and Allergies Home Medications Medication Instructions Recorded Confirmed Type budesonide 0.5 mg/2 mL suspension 2 ml inhalation BID PRN Sinus 06/25/19 05/20/23 History for nebulization Symptoms hydrocodone 5 mg-acetaminophen 325 1 tab PO NOW PRN Pain (Scale Score 06/25/19 05/20/23 History mg tablet 4-6) ciclesonide 160 mcg/actuation 1 puff inhalation DAILY 08/01/20 05/20/23 History aerosol inhaler (Alvesco) mesalamine 400 mg capsule (with 400 mg PO BID 08/01/20 05/20/23 History delayed release tablets inside) (Delzicol) metformin 500 mg tablet 500 mg PO BID 08/01/20 05/20/23 History montelukast 10 mg tablet 10 mg PO DAILY 08/01/20 05/20/23 History rosuvastatin 10 mg tablet 10 mg PO DAILY 08/01/20 05/20/23 History apixaban 5 mg tablet (Eliquis) 5 mg PO BID 05/20/23 05/20/23 History Allergies Allergy/AdvReac Type Severity Reaction Status Date / Time rivaroxaban [From XARELTO] Allergy Severe THOUGHT HE Verified 05/20/23 10:37 WAS HAVING A HEART ATTACK Exam Vital Signs (past 8 hours): - 05/20/23 10:28 Temperature 96.2 F L Pulse Rate 67 Respiratory Rate 17 Blood Pressure 144/84 H Pulse Oximetry 99 Oxygen Delivery Method Room Air Oxygen Delivery Method Room Air Narrative Exam Narrative: Oropharynx free of lesions Chest clear to auscultation percussion Cardiac exam reveals no S3 or murmur Assessment & Plan Assessment & Plan narrative: History of ulcerative colitis need for follow-up colonoscopy in biopsies. Risks, benefits, alternatives have been explained.
--- NOTE | 2023-05-20 10:52 | PM.OP.COLON ---
Operative Date/Time/Diagnoses Date of procedure: 05/20/23 Pre-op diagnosis: See indication and findings Procedure & Clinicians Study performed: Colonoscopy with biopsy Indications: History of ulcerative colitis Surgeon: Bridget Higuera Procedure Notes Procedure in detail: After informed consent was obtained the patient was placed in left lateral decubitus position. The video colonoscope was introduced the rectum slowly advanced to the cecum. Preparation was good. On slow withdrawal mucosa was carefully examined. The scope was removed. The patient tolerated procedure well. Blood loss none Complications none Sedation mac Findings 1. Normal colonoscopy to cecum without any active colitis. Two biopsies taken every 10 cm and placed in 3 bottles, right, transverse, and left. Follow-up colonoscopy in 2 years is recommended
[2023-05-20 11:50] VITALS: BP 98/68; PULSE 60; RESP 14; TEMP 36.3; O2SAT 92
[2023-05-20 11:54] VITALS: BP 118/81; PULSE 76; RESP 16; O2SAT 92
[2023-05-20 12:01] VITALS: BP 128/88; PULSE 73; RESP 16; O2SAT 94
[2023-05-20 12:05] VITALS: BP 140/95; PULSE 65; RESP 14; TEMP 36.5; O2SAT 95
[2023-05-20 12:09] VITALS: PULSE 65; RESP 16; O2SAT 95
== END 2023-05-20 12:14 | disposition home or self-care (01) ==
PROVIDERS: PCP Obstetrics & Gynecology Obstetrics; Referring Provider Internal Medicine Gastroenterology; Visit Provider Internal Medicine Gastroenterology
PROC: 0DJD8ZZ Inspection of Lower Intestinal Tract, Via Natural or Artificial Opening Endoscopic (ICD-10-PCS; CPT 45378; principal; 2023-05-20 11:00)
DX: Z87.19 Personal history of other diseases of the digestive system (principal)
CPT/HCPCS: 45380; J2704; J3010

== ENCOUNTER → 2023-06-29 10:48 | Outpatient (CLI) | payer MEDICARE, SELFPAY ==
[2022-07-29 19:02] VITALS: BMI 29.1
--- NOTE | 2023-06-29 10:50 | DI.RAD.S_ITS ---
PROCEDURE: XR HAND LT MIN 3V INDICATIONS: Third left distal finger puncture wound TECHNIQUE: 3 views of the hand(s) acquired. COMPARISON: None. FINDINGS: Bones: No fractures or dislocations. Carpal bones are normally aligned. No suspicious bony lesions. Soft tissues: No suspicious soft tissue calcifications. No radiopaque foreign bodies or subcutaneous emphysema. IMPRESSION: No acute bony abnormality. Dictated by: Stanley Espinoza M.D. on 06/29/2023 at 12:16 Approved by: Stanley Espinoza M.D. on 06/29/2023 at 12:17
== END ==
LOC: RAD 10:49
PROVIDERS: PCP Obstetrics & Gynecology Obstetrics; Referring Provider Physician Assistant; Visit Provider Physician Assistant
DX: T14.8XXA Other injury of unspecified body region, initial encounter (principal); X58.XXXA Exposure to other specified factors, initial encounter
CPT/HCPCS: 73130

== ENCOUNTER → 2023-07-22 07:02 | Outpatient (CLI) | payer MEDICARE, SELFPAY ==
[2022-07-29 19:02] VITALS: BMI 29.1
[2023-07-22 08:07] LABS: Alanine Aminotransferase 31 IU/L (<50); Albumin 3.9 g/dL (3.5-5.0); Albumin Globulin Ratio 1.6 (1.0-2.8); Alkaline Phosphatase 61 U/L (38-126); Aspartate Aminotransferase 25 IU/L (17-59); BUN Creatinine Ratio 24.4 (6-22); Bilirubin Total 0.9 mg/dL (0.2-1.3); Blood Urea Nitrogen 19 mg/dL (9-20); Calcium 10.1 mg/dL (8.4-10.2); Carbon Dioxide 30 mmol/L (22-32); Chloride 108 mmol/L (98-107); Cholesterol 152 mg/dL (140-199); Estimated Glomerular Filt Rate > 60 mL/min (>60); Globulin 2.4 g/dL (1.7-4.1); Glucose 134 mg/dL (80-110); HDL Cholesterol 86 mg/dL (40-60); HEMOLYSIS < 15 (0-50); LDL Cholesterol Calculated 52 mg/dL (<100); Potassium 4.3 mmol/L (3.4-5.1); Sodium 138 mmol/L (137-145); Total Protein 6.3 g/dL (6.3-8.2); Triglycerides 68 mg/dL (35-150)
[2023-07-22 08:58] LABS: Hemoglobin A1C% w Est Avg Glu 6.5 % (4.0-6.0)
== END ==
PROVIDERS: PCP Obstetrics & Gynecology Obstetrics; Referring Provider Obstetrics & Gynecology Obstetrics; Visit Provider Obstetrics & Gynecology Obstetrics
DX: E11.9 Type 2 diabetes mellitus without complications (principal); E78.5 Hyperlipidemia, unspecified
CPT/HCPCS: 36415; 80053; 80061; 83036

== ENCOUNTER → 2023-10-22 06:59 | Outpatient (CLI) | payer MEDICARE, SELFPAY ==
[2022-07-29 19:02] VITALS: BMI 29.1
[2023-10-22 07:38] LABS: Hemoglobin A1C% w Est Avg Glu 6.7 % (4.0-6.0)
[2023-10-22 08:28] LABS: Alanine Aminotransferase 27 IU/L (<50); Albumin 4.4 g/dL (3.5-5.0); Albumin Globulin Ratio 1.8 (1.0-2.8); Alkaline Phosphatase 67 U/L (38-126); Aspartate Aminotransferase 26 IU/L (17-59); BUN Creatinine Ratio 18.6 (6-22); Blood Urea Nitrogen 19 mg/dL (9-20); Calcium 10.6 mg/dL (8.4-10.2); Carbon Dioxide 28 mmol/L (22-32); Chloride 103 mmol/L (98-107); Cholesterol 156 mg/dL (140-199); Estimated Glomerular Filt Rate > 60 mL/min (>60); Globulin 2.4 g/dL (1.7-4.1); Glucose 123 mg/dL (80-110); HDL Cholesterol 94 mg/dL (40-60); HEMOLYSIS < 15 (0-50); LDL Cholesterol Calculated 43 mg/dL (<100); Potassium 4.7 mmol/L (3.4-5.1); Sodium 134 mmol/L (137-145); Total Protein 6.8 g/dL (6.3-8.2); Triglycerides 94 mg/dL (35-150)
== END ==
PROVIDERS: PCP Obstetrics & Gynecology Obstetrics; Referring Provider Obstetrics & Gynecology Obstetrics; Visit Provider Obstetrics & Gynecology Obstetrics
DX: E78.5 Hyperlipidemia, unspecified (principal); E11.9 Type 2 diabetes mellitus without complications
CPT/HCPCS: 36415; 80053; 80061; 83036

== ENCOUNTER → 2023-12-29 07:10 | Outpatient (CLI) | payer MEDICARE, SELFPAY ==
[2022-07-29 19:02] VITALS: BMI 29.1
[2023-12-29 08:06] LABS: Hematocrit 39.5 % (41-53); Hemoglobin 13.9 g/dL (13.5-17.5); Mean Corpuscular HGB Conc 35.1 % (30-36); Mean Corpuscular Hemoglobin 33.4 PG (26-34); Mean Corpuscular Volume 95.1 fL (80-100); Platelet Count 260 X10^3/uL (150-400); Red Blood Cell Count 4.15 X10^6/uL (4.5-5.9); Red Cell Distribution Width 12.6 % (11.6-14.8); White Blood Cell Count 6.3 X10^3/uL (4.5-11.0)
[2023-12-29 08:44] LABS: Alanine Aminotransferase 25 IU/L (<50); Albumin 4.2 g/dL (3.5-5.0); Albumin Globulin Ratio 2.1 (1.0-2.8); Alkaline Phosphatase 63 U/L (38-126); Aspartate Aminotransferase 23 IU/L (17-59); BUN Creatinine Ratio 23.7 (6-22); Bilirubin Total 0.7 mg/dL (0.2-1.3); Blood Urea Nitrogen 18 mg/dL (9-20); Carbon Dioxide 25 mmol/L (22-32); Chloride 104 mmol/L (98-107); Cholesterol 153 mg/dL (140-199); Estimated Glomerular Filt Rate > 60 mL/min (>60); Glucose 141 mg/dL (80-110); HDL Cholesterol 88 mg/dL (40-60); HEMOLYSIS < 15 (0-50); LDL Cholesterol Calculated 47 mg/dL (<100); Potassium 4.6 mmol/L (3.4-5.1); Sodium 138 mmol/L (137-145); Total Protein 6.2 g/dL (6.3-8.2); Triglycerides 88 mg/dL (35-150)
[2023-12-29 09:14] LABS: TSH w/ Reflex to FT4 2.38 uIU/mL (0.47-4.68)
[2023-12-29 13:54] LABS: Hemoglobin A1C% w Est Avg Glu 6.4 % (4.0-6.0)
== END ==
PROVIDERS: PCP Obstetrics & Gynecology Obstetrics; Referring Provider Obstetrics & Gynecology Obstetrics; Visit Provider Obstetrics & Gynecology Obstetrics
DX: E11.9 Type 2 diabetes mellitus without complications (principal); E78.5 Hyperlipidemia, unspecified; R63.4 Abnormal weight loss; R23.3 Spontaneous ecchymoses
CPT/HCPCS: 36415; 80053; 80061; 83036; 84443; 85027

== ENCOUNTER → 2024-05-02 07:06 | Outpatient (CLI) | payer MEDICARE, SELFPAY ==
[2022-07-29 19:02] VITALS: BMI 29.1
[2024-05-02 08:44] LABS: Hemoglobin A1C% w Est Avg Glu 6.6 % (4.0-6.0)
[2024-05-02 09:00] LABS: Alanine Aminotransferase 33 IU/L (<50); Albumin 4.3 g/dL (3.5-5.0); Albumin Globulin Ratio 2.2 (1.0-2.8); Alkaline Phosphatase 54 U/L (38-126); Aspartate Aminotransferase 30 IU/L (17-59); BUN Creatinine Ratio 19.5 (6-22); Bilirubin Total 0.9 mg/dL (0.2-1.3); Blood Urea Nitrogen 16 mg/dL (9-20); Calcium 9.9 mg/dL (8.4-10.2); Carbon Dioxide 29 mmol/L (22-32); Chloride 103 mmol/L (98-107); Estimated Glomerular Filt Rate > 60 mL/min (>60); Glucose 140 mg/dL (80-110); HEMOLYSIS < 15 (0-50); Potassium 4.6 mmol/L (3.4-5.1); Sodium 137 mmol/L (137-145); Total Protein 6.3 g/dL (6.3-8.2)
== END ==
PROVIDERS: PCP Obstetrics & Gynecology Obstetrics; Referring Provider Obstetrics & Gynecology Obstetrics; Visit Provider Obstetrics & Gynecology Obstetrics
DX: E11.9 Type 2 diabetes mellitus without complications (principal); E78.5 Hyperlipidemia, unspecified
CPT/HCPCS: 36415; 80053; 80061; 83036

== ENCOUNTER → 2024-07-25 08:00 | Outpatient (CLI) | payer MEDICARE, SELFPAY ==
[2022-07-29 19:02] VITALS: BMI 29.1
[2024-07-25 08:44] LABS: Hemoglobin A1C% w Est Avg Glu 6.1 % (4.0-6.0)
[2024-07-25 08:51] LABS: Alanine Aminotransferase 26 IU/L (<50); Albumin 4.5 g/dL (3.5-5.0); Alkaline Phosphatase 73 U/L (38-126); Aspartate Aminotransferase 26 IU/L (17-59); BUN Creatinine Ratio 22.8 (6-22); Blood Urea Nitrogen 18 mg/dL (9-20); Calcium 10.2 mg/dL (8.4-10.2); Carbon Dioxide 26 mmol/L (22-32); Chloride 104 mmol/L (98-107); Estimated Glomerular Filt Rate > 60 mL/min (>60); Globulin 2.2 g/dL (1.7-4.1); Glucose 144 mg/dL (80-110); HEMOLYSIS < 15 (0-50); Potassium 4.7 mmol/L (3.4-5.1); Sodium 137 mmol/L (137-145); Total Protein 6.7 g/dL (6.3-8.2)
== END ==
PROVIDERS: PCP Obstetrics & Gynecology Obstetrics; Referring Provider Obstetrics & Gynecology Obstetrics; Visit Provider Obstetrics & Gynecology Obstetrics
DX: E11.9 Type 2 diabetes mellitus without complications (principal); E78.5 Hyperlipidemia, unspecified
CPT/HCPCS: 36415; 80053; 80061; 83036

== ENCOUNTER → 2024-11-05 10:10 | Outpatient (CLI) | payer MEDICARE, SELFPAY ==
[2022-07-29 19:02] VITALS: BMI 29.1
[2024-11-05 12:00] LABS: COVID-19 CEPHEID 4-PLEX PCR POSITIVE (Negative); Influenza A - CEPHEID Flu A NEGATIVE (NEGATIVE); Influenza B - CEPHEID Flu B NEGATIVE (NEGATIVE)
== END ==
LOC: LAB 10:10
PROVIDERS: PCP Obstetrics & Gynecology Obstetrics; Visit Provider Nurse Practitioner Family
DX: R05.1 Acute cough (principal)
CPT/HCPCS: 87637

== ENCOUNTER → 2024-11-18 07:25 | Outpatient (CLI) | payer MEDICARE, SELFPAY ==
[2022-07-29 19:02] VITALS: BMI 29.1
[2024-11-18 08:07] LABS: Hemoglobin A1C% w Est Avg Glu 7.1 % (4.0-6.0)
[2024-11-18 08:26] LABS: Alanine Aminotransferase 26 IU/L (<50); Albumin 4.6 g/dL (3.5-5.0); Albumin Globulin Ratio 2.0 (1.0-2.8); Alkaline Phosphatase 70 U/L (38-126); Blood Urea Nitrogen 20 mg/dL (9-20); Calcium 10.0 mg/dL (8.4-10.2); Carbon Dioxide 27 mmol/L (22-32); Chloride 100 mmol/L (98-107); Estimated Glomerular Filt Rate > 60 mL/min (>60); Globulin 2.3 g/dL (1.7-4.1); Glucose 146 mg/dL (70-99); HEMOLYSIS < 15 (0-50); Potassium 4.4 mmol/L (3.4-5.1); Sodium 136 mmol/L (137-145); Total Protein 6.9 g/dL (6.3-8.2)
[2024-11-19 02:36] LABS: Cholesterol,Total 163 mg/dL (100-199); HDL Cholesterol 76 mg/dL (>39); LDL Cholesterol Cal 66 mg/dL (0-99); Triglycerides 120 mg/dL (0-149)
== END ==
PROVIDERS: PCP Obstetrics & Gynecology Obstetrics; Referring Provider Obstetrics & Gynecology Obstetrics; Visit Provider Obstetrics & Gynecology Obstetrics
DX: E11.9 Type 2 diabetes mellitus without complications (principal); E78.5 Hyperlipidemia, unspecified
CPT/HCPCS: 36415; 80053; 80061; 83036

== ENCOUNTER → 2025-02-24 07:56 | Outpatient (CLI) | payer MEDICARE, SELFPAY ==
[2022-07-29 19:02] VITALS: BMI 29.1
[2025-02-24 08:43] LABS: Hemoglobin A1C% w Est Avg Glu 6.8 % (4.0-6.0)
[2025-02-24 08:52] LABS: Alanine Aminotransferase 29 IU/L (<50); Albumin 4.3 g/dL (3.5-5.0); Albumin Globulin Ratio 1.9 (1.0-2.8); Alkaline Phosphatase 61 U/L (38-126); Blood Urea Nitrogen 20 mg/dL (9-20); Calcium 10.0 mg/dL (8.4-10.2); Carbon Dioxide 28 mmol/L (22-32); Chloride 102 mmol/L (98-107); Estimated Glomerular Filt Rate > 60 mL/min (>60); Globulin 2.3 g/dL (1.7-4.1); Glucose 154 mg/dL (70-99); HEMOLYSIS < 15 (0-50); Potassium 4.4 mmol/L (3.4-5.1); Sodium 136 mmol/L (137-145); Total Protein 6.6 g/dL (6.3-8.2)
[2025-02-25 07:10] LABS: Cholesterol,Total 164 mg/dL (100-199); HDL Cholesterol 81 mg/dL (>39); LDL Cholesterol Cal 67 mg/dL (0-99); Triglycerides 90 mg/dL (0-149)
== END ==
PROVIDERS: PCP Obstetrics & Gynecology Obstetrics; Referring Provider Obstetrics & Gynecology Obstetrics; Visit Provider Obstetrics & Gynecology Obstetrics
DX: E11.9 Type 2 diabetes mellitus without complications (principal); E78.5 Hyperlipidemia, unspecified
CPT/HCPCS: 36415; 80053; 80061; 83036

== ENCOUNTER 2025-04-17 17:11 | Emergency (ER) | payer MEDICARE, SELFPAY ==
[2022-07-29 19:02] VITALS: BMI 29.1
--- OUTSIDE RECORDS SUMMARY | 2025-04-17 17:15 | XMS_ITS | Encounter Summary ---
Author Organization [facility] Address [address] [place] [address] Care Team Providers Care Life Skills Specialist Name Role Phone Shreya Mejia MD Primary Care Provider [phone] Encounter Details Date Type Department Care Team (Late st Contact Info) Description 09/20/2020 [facility]rology [place] [address] [place] [address] Nixon Smith, [address] [place] [address] Social History Tobacco Use Types Packs/Day Years Used Date Smoking Tobacco: Former Cigarettes 1 8 1987 Smokeless Tobacco: Never Alcohol Use Standard Drinks/Week Comments Yes 0 (1 standard drink = 0.6 oz pur e alcohol) 2 GLASSES WINE/DAY Sex and Gender Information Value Date Recorded Sex Assigned at Male 10/15/2022 10:39 PM PDT Legal Sex Male 7:26 PM PDT Gender Identity Male 10/15/2022 10:39 PM PDT Sexual Orientation Not on file Occupation Industry Job Start Date Job End Date Not on file Not on file Not on file Not on file documented as of this encounter Plan of Treatment Not on file documented as of this encounter Visit Diagnoses Not on filedocumented in this encounter Care Teams Life Skills Specialist Relationship Specialty Start Date End Date Shreya Mejia MD [address] [place] [address] PCP - General Family Medicine 04/05/25 documented as of this encounter
[2025-04-17 17:19] VITALS: BP 163/87; PULSE 66; RESP 18; TEMP 36.6; O2SAT 99; BMI 29.8
--- NOTE | 2025-04-17 17:26 | DI.RAD.S_ITS ---
PROCEDURE: XR CHEST 1V INDICATIONS: dizziness TECHNIQUE: One view of the chest was acquired. COMPARISON: [facility], CR, XR CHEST 1V, 10/15/2022, 11:54. [facility], CR, XR CHEST 1V, 07/29/2022, 14:37. 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 Lungs and pleura: Lungs are clear. No pleural effusions or pneumothorax. Mediastinum: Mediastinal contours appear normal. Heart size is normal. Bones and chest wall: No suspicious bony lesions. Overlying soft tissues appear unremarkable. IMPRESSION: No acute cardiopulmonary abnormality is seen. Dictated by: Corky Batista M.D. on 04/17/2025 at 18:33 Approved by: Corky Batista M.D. on 04/17/2025 at 18:33
--- NOTE | 2025-04-17 17:26 | ED.DIZZY ---
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 Patient denies any headache, loss of consciousness, difficulty speaking, swallowing, chest pain, shortness of breath, weakness, arms, legs, bowel or bladder incontinence, fever, chills, body aches, cough, sore throat, nausea, vomiting, diarrhea, abdominal pain, back pain. other than what is stated 14 point review of system is negative. Related Data Home Medications ?Medication ?Instructions ?Recorded ?Confirmed budesonide 0.5 mg/2 mL suspension 2 ml inhalation BID PRN Sinus 06/25/19 11/05/24 for nebulization Symptoms ciclesonide 160 mcg/actuation 1 puff inhalation DAILY 08/01/20 11/05/24 aerosol inhaler (Alvesco) mesalamine 400 mg capsule (with 400 mg PO BID 08/01/20 11/05/24 delayed release tablets inside) (Delzicol) metformin 500 mg tablet 500 mg PO BID 08/01/20 11/05/24 montelukast 10 mg tablet 10 mg PO DAILY 08/01/20 11/05/24 rosuvastatin 10 mg tablet 10 mg PO DAILY 08/01/20 11/05/24 apixaban 5 mg tablet (Eliquis) 5 mg PO BID 05/20/23 11/05/24 hydrocodone 5 mg-acetaminophen 325 1 tab PO Q6H PRN Pain (Scale Score 06/29/23 11/05/24 mg tablet 4-6) fluticasone furoate 100 1 inh inhalation DAILY 10/09/23 11/05/24 mcg/actuation blister powder for inhalation (Arnuity Ellipta) Previous Rx's ?Medication ?Instructions ?Recorded sulfamethoxazole 800 1 tab PO Q12H #14 tabs 06/29/23 mg-trimethoprim 160 mg tablet (Bactrim DS) doxycycline hyclate 100 mg tablet 100 mg PO BID #14 tabs 10/09/23 amoxicillin 875 mg-potassium 1 tab PO Q12H #14 tabs 04/17/25 clavulanate 125 mg tablet Allergies Allergy/AdvReac Type Severity Reaction Status Date / Time rivaroxaban (From XARELTO) Allergy Severe THOUGHT HE Verified 04/17/25 17:19 WAS HAVING A HEART ATTACK Review of Systems Review of Systems ROS Unobtainable: All systems reviewed & are unremarkable except as noted in HPI and below Patient History Medical History Skin tear Viral syndrome Social History household members: spouse Smoking Status: Former smoker alcohol intake: current Smoking Status: Former smoker tobacco type: cigarettes alcohol intake frequency: 0-2 drinks per day Exam Narrative Exam Narrative: GENERAL: [74] year old patient appears stated age. Well-developed patient, in mild distress. HEAD: Atraumatic. Normocephalic. EYES: Pupils equal round and reactive. Extraocular motions intact. No scleral icterus. No injection or drainage. ENT: Nose without bleeding, purulent drainage. Throat without erythema, tonsillar hypertrophy or exudate. Airway patent. NECK: Trachea midline. Non tender CARDIOVASCULAR: Regular rate and rhythm without murmurs, gallops, or rubs. RESPIRATORY: Clear to auscultation. Breath sounds equal bilaterally. No wheezes, rales, or rhonchi. GASTROINTESTINAL: Abdomen soft, non-tender, nondistended. EXTREMITIES: No edema or joint tenderness. BACK: Nontender without deformity or crepitance. No flank tenderness. NEURO: AOx3. SKIN: No rash or erythema of visible areas Initial Vital Signs Initial Vital Signs: Vital Signs Temperature 97.8 F 04/17/25 17:19 Pulse Rate 66 04/17/25 17:19 Respiratory Rate 18 04/17/25 17:19 Blood Pressure 163/87 H 04/17/25 17:19 Pulse Oximetry 99 04/17/25 17:19 Oxygen Delivery Method Room Air 04/17/25 17:19 Scores NIH Stroke Scale Level of Conciousness: Alert, keenly responsive Ask month/age: Answers both questions correctly. Open/close eyes, close hand: Performs both tasks correctly Best gaze horizontal: Normal Visual naylor: No visual loss Facial palsy: Normal symetrical movement Left arm drift: No drift for full 10 sec Right arm drift: No drift for full 10 sec Left leg drift: No drift for full 5 sec Right leg drift: No drift for full 5 sec Limb ataxia: Absent Sensory on face/arms/legs: Normal, no sensory loss Best language: No aphasia, normal Dysarthria: Normal Extinction or inattention: No abnormality Total NIH Stroke scale score: 0 Course Orders Ordered: ED Orders 04/17/25 17:26 CT angio head and neck Stat CT head/brain wo con Stat XR chest 1V Stat EKG-12 Lead Stat 04/17/25 17:45 Complete Blood Count AUTO DIFF Stat Comprehensive Metabolic Panel Stat Lipase Stat Magnesium Stat NT-proBNP (BNP-Adult 18+) Stat Troponin I Stat Vital Signs Vital signs: Vital Signs - 8 hr 04/17/25 17:19 04/17/25 18:33 Temperature 97.8 F Pulse Rate 66 65 Respiratory Rate 18 17 Blood Pressure 163/87 H Pulse Oximetry 99 97 Oxygen Delivery Method Room Air Room Air MDM - Dizziness Lab Data 04/17/25 17:45 04/17/25 17:45 Labs: Lab Results 04/17/25 Range/Units 17:45 WBC 6.5 (4.5-11.0) X10^3/uL RBC 4.21 L (4.5-5.9) X10^6/uL Hgb 14.1 (13.5-17.5) g/dL Hct 39.8 L (41-53) % MCV 94.6 (80-100) fL MCH 33.4 (26-34) PG MCHC 35.3 (30-36) % RDW 12.7 (11.6-14.8) % Plt Count 262 (150-400) X10^3/uL Neut % (Auto) 61.7 (50-75) % Lymph % (Auto) 24.7 L (25-40) % Webb % (Auto) 8.9 (3-14) % Eos % (Auto) 3.6 (2-4) % Baso % (Auto) 1.1 (0-2) % Neut # (Auto) 4000 (9466-4578) /uL Lymph # (Auto) 1600 (3438-3664) /uL Webb # (Auto) 600 (0-900) /uL Eos # (Auto) 200 (0-450) /uL Baso # (Auto) 100 (0-100) /uL Sodium 139 (137-145) mmol/L Potassium 4.4 (3.4-5.1) mmol/L Chloride 103 (98-107) mmol/L Carbon Dioxide 26 (22-32) mmol/L BUN 17 (9-20) mg/dL Creatinine 0.78 (0.66-1.25) mg/dL Estimated GFR > 60 (>60) mL/min BUN/Creatinine Ratio 21.8 (6-22) Glucose 107 H (70-99) mg/dL Calcium 9.9 (8.4-10.2) mg/dL Magnesium 2.2 (1.6-2.3) mg/dL Total Bilirubin 0.9 (0.2-1.3) mg/dL AST 27 (17-59) IU/L ALT 27 (<50) IU/L Alkaline Phosphatase 65 (38-126) U/L Troponin I < 0.012 (0.01-0.034) ng/mL NT-Pro-B Natriuret Pep < 20 (<125) pg/mL Total Protein 7.2 (6.3-8.2) g/dL Albumin 4.6 (3.5-5.0) g/dL Globulin 2.6 (1.7-4.1) g/dL Albumin/Globulin Ratio 1.8 (1.0-2.8) Lipase 620 H (23-300) U/L Imaging Data CT scan - head: Radiologist's Impression: [place] [address] CT Scan Report Signed Patient: Mitchell Keller MR#: [id number] : 1950 Acct:[id number] Age/Sex: 74 / M Date of Service: 04/17/25 Loc: ED Accession Number: [id number] Procedure: CT head/brain wo con Ordering Provider: Theo Torres D.O. PROCEDURE: CT HEAD/BRAIN WO CON INDICATIONS: dizziness TECHNIQUE: Noncontrast 4.5 mm thick angled axial sections acquired from the foramen magnum to the vertex, with coronal and sagittal reformats. For radiation dose reduction, the following was used: automated exposure control, adjustment of mA and/or kV according to patient size. COMPARISON: None. FINDINGS: Image quality: Diagnostic. CSF spaces: Basal cisterns are patent. No extra-axial fluid collections. The ventricles are symmetric in size and shape. Brain: No intracranial bleeds or mass effect. There is cerebral volume loss, with resultant ventricular and sulcal prominence. There are periventricular and deep white matter chronic small vessel ischemic changes. There is intracranial internal carotid artery atherosclerosis. Skull and face: Calvarium and visualized facial bones appear intact, without suspicious lesions. Sinuses: Mucosal thickening of the ethmoid air cells and partially visualized maxillary sinuses. The frontal sinuses are clear. The mastoid air cells are clear. IMPRESSION: No acute intracranial pathology. Mucosal thickening of the ethmoid air cells and partially visualized maxillary sinuses, correlate for chronic sinusitis or upper respiratory infectious process. CTA - brain/neck: Radiologist's Impression: [place] [address] CT Scan Report Signed Patient: Mitchell Keller MR#: [id number] : 1950 Acct:[id number] Age/Sex: 74 / M Date of Service: 04/17/25 Loc: ED Accession Number: [id number] Procedure: CT angio head and neck Ordering Provider: Theo Torres D.O. PROCEDURE: CT ANGIO HEAD AND NECK INDICATIONS: dizziness TECHNIQUE: After the administration of intravenous contrast, 1 mm thick sections acquired from the aortic arch through the [place] of [place]. 3-dimensional muwjsud-brqhklslb-pozgjnzaad (MIP) and/or volume rendering reformats were acquired of the central intracranial vasculature and neck separately. For radiation dose reduction, the following was used: automated exposure control, adjustment of mA and/or kV according to patient size. COMPARISON: None. FINDINGS: Image quality: Diagnostic. Cerebral CT Angiogram: Internal carotid arteries: No acute findings. Intracranial ICA are patent with no significant stenosis. No occlusion. No aneurysm. Anterior cerebral arteries: Unremarkable. No significant stenosis. No occlusion. No aneurysm. Middle cerebral arteries: Unremarkable. No significant stenosis. No occlusion. No aneurysm. Posterior cerebral arteries: Unremarkable. No significant stenosis. No occlusion. No aneurysm. Basilar artery: Unremarkable. No significant stenosis. No occlusion. No aneurysm. Vertebral arteries: Unremarkable as visualized. Dural venous sinuses: Unremarkable given phase of enhancement. Other: Arterial phase appearance of the brain parenchyma is unremarkable. Neck CT Angiogram: Internal carotid arteries: Unremarkable. No significant stenosis. No dissection or occlusion. Common carotid arteries: Unremarkable. No significant stenosis. No dissection or occlusion. External carotid arteries: Unremarkable. No occlusion. Vertebral arteries: Unremarkable. No significant stenosis. No dissection or occlusion. Aortic Arch and Mediastinum: Partially visualized aortic arch unremarkable without evidence of aneurysm. Origins of the great vessels unremarkable. Other: Degenerated disc osteophyte complexes from C2-3 through C6-7. Otherwise the arterial phase soft tissues of the neck and chest are unremarkable. IMPRESSION: No significant intracranial arterial abnormality is seen. No significant abnormality is seen within the arteries of the neck. Any quantitative measurements of stenosis were performed using NASCET criteria. Dictated by: Corky Batista M.D. on 04/17/2025 at 18:35 Approved by: Corky Batista M.D. on 04/17/2025 at 18:36 ECG Data Interpretation: NSR HR 63 SC 168 QRs [address]-t wav change Change from 10/15/22 MDM Narrative Medical decision making narrative: All lab work, vital signs, nurse triage note, medication list, previous ER visits, and all imaging studies reviewed. WBC 6.5 hemoglobin 14.1 platelet 262 sodium 139 potassium 4 point chloride 103 CO2 26 BUN 17 creatinine 0.78 glucose 107 magnesium 2.2 LFTs normal troponin less than 0.012 BNP less than 20 LFTs normal lipase 620. CT head showed mucosal thickening of ethmoid cells and partially visualized maxillary sinus correlate for signs chronic sinusitis or upper respiratory infectious process. CTA head and neck showed no acute process. patient did not want to have 2nd troponin drawn. patient given Augmentin here and will be discharged on Augmentin. differential diagnosis vertigo dehydration orthostatic hypotension aneurysm hemorrhage CVA electrolyte derangement Discharge Plan Departure Patient Disposition: Home Clinical Impression: Chronic maxillary sinusitis Instructions: Sinusitis Activity Restrictions/Additional Instructions: Return with new or worsening symptoms. Keep hydrated. Take medication as directed. Follow up this week if no improvement in symptoms. Prescriptions: New amoxicillin-pot clavulanate 875-125 mg tablet 1 tab PO Q12H Qty: 14 0RF No Action sulfamethoxazole-trimethoprim [Bactrim DS] 800-160 mg tablet 1 tab PO Q12H Qty: 14 0RF Arnuity Ellipta 100 mcg/actuation blister with device 1 inh inhalation DAILY doxycycline hyclate 100 mg tablet 100 mg PO BID Qty: 14 0RF budesonide 0.5 mg/2 mL suspension for nebulization 2 ml inhalation BID PRN (Reason: Sinus Symptoms) hydrocodone-acetaminophen 5-325 mg tablet 1 tab PO Q6H PRN (Reason: Pain (Scale Score 4-6)) metformin 500 mg tablet 500 mg PO BID montelukast 10 mg tablet 10 mg PO DAILY Rx Instructions: at night rosuvastatin 10 mg tablet 10 mg PO DAILY Rx Instructions: at night Alvesco 160 mcg/actuation HFA aerosol inhaler 1 puff INHALATION DAILY mesalamine [Delzicol] 400 mg Capsule (With Del Rel Tablets) 400 mg PO BID Eliquis 5 mg tablet 5 mg PO BID Referrals: Shreya Mejia MD [Primary Care Provider, Family Practice] Stand Alone Forms: Patient Portal/API
--- NOTE | 2025-04-17 17:31 | EKG_ITS ---
[address] [address] Test Date: 2025-04-17 Pat Name: Mitchell Keller Department: Room: Gender: Male [employer]: [place]ER[place] : 1950 Requested By: Order Number: [id number] Reading MD: Theo Hauser MD Measurements Intervals [place] Rate: 63 P: 9 NV: 168 QRS: -27 QRSD: 128 T: 19 QT: 426 QTc: 435 Interpretive Statements Normal sinus rhythm Right bundle branch block Electronically Signed On 04-18-2025 7:42:56 PST by Theo Hauser MD
[2025-04-17 17:54] LABS: Add Manual Diff / Slide Review NO; Hematocrit 39.8 % (41-53); Hemoglobin 14.1 g/dL (13.5-17.5); Lymphocytes Absolute Auto 1600 /uL (1100-4500); Mean Corpuscular HGB Conc 35.3 % (30-36); Mean Corpuscular Hemoglobin 33.4 PG (26-34); Mean Corpuscular Volume 94.6 fL (80-100); Platelet Count 262 X10^3/uL (150-400)
[2025-04-17 18:19] LABS: Alanine Aminotransferase 27 IU/L (<50); Albumin 4.6 g/dL (3.5-5.0); Albumin Globulin Ratio 1.8 (1.0-2.8); Alkaline Phosphatase 65 U/L (38-126); Blood Urea Nitrogen 17 mg/dL (9-20); Calcium 9.9 mg/dL (8.4-10.2); Carbon Dioxide 26 mmol/L (22-32); Chloride 103 mmol/L (98-107); Estimated Glomerular Filt Rate > 60 mL/min (>60); Globulin 2.6 g/dL (1.7-4.1); Glucose 107 mg/dL (70-99); HEMOLYSIS < 15 (0-50); Lipase 620 U/L (23-300); Magnesium 2.2 mg/dL (1.6-2.3); Potassium 4.4 mmol/L (3.4-5.1); Sodium 139 mmol/L (137-145); Total Protein 7.2 g/dL (6.3-8.2)
[2025-04-17 18:31] LABS: NT-proBNP (BNP-Adult 18+) < 20 pg/mL (<125); Troponin I < 0.012 ng/mL (0.01-0.034)
[2025-04-17 18:33] VITALS: PULSE 65; RESP 17; O2SAT 97
[2025-04-17 19:00] VITALS: BP 144/84; PULSE 67; RESP 20; O2SAT 97
[2025-04-17] MEDS: AMOXICILLIN/CLAV 875/125 MG 1 TAB PO (19:32)
== END 2025-04-17 19:34 | disposition home or self-care (01) ==
PROVIDERS: Emergency Provider Family Medicine; PCP Obstetrics & Gynecology Obstetrics
DX: J32.0 Chronic maxillary sinusitis (principal); E11.9 Type 2 diabetes mellitus without complications; R26.9 Unspecified abnormalities of gait and mobility
CPT/HCPCS: 36415; 70450; 70496; 70498; 71045; 80053; 83690; 83735; 83880; 84484; 85025; 93005; 93010; 99284; Q9967